=== PATIENT | female | born 1940 | race Caucasian/White ===

== ENCOUNTER 2024-06-27 13:07 | Outpatient (RCR) | payer MEDICARE, SELFPAY ==
[2024-06-27 13:40] VITALS: BP 124/94; PULSE 56; RESP 18; TEMP 36; BMI 32.4
--- NOTE | 2024-06-27 15:07 | PCM.WC.HP ---
History of Present Illness Date of Service: 06/27/24 Chief Complaint: Left anterior leg cat bite History of Wound: 83 year old female presents today for further evaluation of a cat bite to her left anterior leg that occurred on 06/17/24 by her own cat. She went to a urgent care in [place] who placed her on Doxycycline (she is PCN allergic). She went back to the urgent care a few days later because her symptoms (erythema, pain, swelling, and the bite was looking worse) were not improving. At that time, a wound culture was obtained and she was kept on the Doxycycline. She has been placing Bactroban ointment to the wound. She states that the erythema has started to resolve over the past several days. The wound culture results from the urgent care were faxed to us and they showed Abundant Pasteurella multocida (+4), Rare Mixed Skin Microorganisms (+1), Abundant Mixed Anaerobic Bacteria (+4). She is denying fever, chills, nausea, vomiting. She comes in today for further evaluation and treatment. Progress of Wound: Left anterior leg wound that has depth that tracts medially at 8:00. There is some mild erythema surrounding the wound. It is very tender to palpation. [facility] Medical History (Updated 06/27/24 @ 15:41 by Christina Walsh NP, NAME PLATE STAMPING MACHINE OPERATOR-C) Osteoporosis Chronic right hip pain Hyperlipidemia GERD (gastroesophageal reflux disease) HTN (hypertension), benign Home Medications ?Medication ?Instructions ?Recorded ?Last Taken ?Type atorvastatin 20 mg tablet 20 mg PO DAILY 06/27/24 Unknown History cefpodoxime 200 mg tablet 400 mg (2 x 200 mg) PO BID 10 days 06/27/24 Unknown Rx #40 tabs doxycycline monohydrate 100 mg 100 mg PO BID 06/27/24 Unknown History tablet hydrocodone-acetaminophen 5-325mg 1 tab PO Q6H PRN PRN severe pain 06/27/24 Unknown History 5mg-325mg lisinopril 30 mg tablet 30 mg PO DAILY 06/27/24 Unknown History metronidazole 500 mg tablet 500 mg PO TID 10 days #30 tabs 06/27/24 Unknown Rx mupirocin 2 % topical ointment 1 applic topical TID 06/27/24 Unknown History Allergy/AdvReac Type Severity Reaction Status Date / Time Penicillins Allergy Mild Hives Verified 06/27/24 13:39 Surgical History (Updated 06/27/24 @ 15:41 by Christina Walsh NAME PLATE STAMPING MACHINE OPERATOR, NAME PLATE STAMPING MACHINE OPERATOR-C) History of tonsillectomy H/O wrist surgery H/O: hysterectomy Knee joint replacement status Social History (Updated 06/27/24 @ 15:27 by Christina Walsh NAME PLATE STAMPING MACHINE OPERATOR, NAME PLATE STAMPING MACHINE OPERATOR-C) number of children: 3 current occupational status: retired pets and animals: Yes pets and animals: cat(s) Smoking Status: Never smoker alcohol intake: never substance use type: does not use ROS Constitutional Constitutional: Denies body ache(s), chills or fever(s) Eyes Eyes: Reports requires corrective lenses ENT HEENT: Reports none Cardiovascular Cardiovascular: Denies chest pain Respiratory/Chest Respiratory/Chest: Denies cough or dyspnea Gastrointestinal Gastrointestinal: Reports nausea and vomiting Genitourinary Genitourinary: Reports none Musculoskeletal Musculoskeletal: Reports as per HPI Integumentary Integumentary: Reports wounds Neurologic Neurologic: Reports none Psychiatric Psychiatric: Reports none Endocrine Endocrinology: Reports none Hematologic/Lymphatic Hematologic/Lymphatic: Reports none Allergic/Immunologic Allergic/Immunologic: Reports as per HPI Vital Signs Vital Signs Vital Signs: 06/27/24 13:40 Temperature 96.8 F L Temperature Source Temporal Pulse Rate 56 L Respiratory Rate 18 Blood Pressure 124/94 H Blood Pressure Mean 104 Blood Pressure Source Monitor Blood Pressure Position Semi-Fowlers Blood Pressure Location Left Arm Oxygen Delivery Method Room Air Weight Weight: 195 lb Body Mass Index (BMI) 32.4 Physical Exam Const alert, oriented x3 and no apparent distress General Appearance: cooperative HEENT normocephalic Head and Scalp: atraumatic Eyes General Eye: normal appearance of both eyes Neck full ROM Lymph Lymphatic: Negative for lymphedema Resp normal respiratory effort and normal air movement Effort and Inspection: able to speak in complete sentences Cardio regular rate and regular rhythm Peripheral Pulses: dorsalis pedis pulses present left 2+ GI non-distended Back/Spine normal ROM Extremity full ROM and normal capillary refill Skin Wound Narrative: Left anterior leg wound that tunnels at 8 o'clock. Erythema surrounding the wound. Neuro oriented x3 and moves all extremities Psych mental status grossly normal, thought process normal, cooperative and affect normal Debridement Note Debridement Note Wound debrided: anterior leg wound Laterality: Left Type of Debridement: Excisional debridement Anesthesia Used: 5% Lidocaine Gel and Cetacaine Depth: Down to and including healthy tissue and in the subcutaneous layer Percentage of wound debrided: 100 Instrument Used: 3mm curette Tissue Removed: Non viable tissue and slough Severity: Fat Layer Exposed Amount of bleeding with debridement: Mild Bleeding Controlled with: Compression and gauze Patient tolerated procedure: Patient tolerated procedure well Post-Debridement Measurements and Additional Note: Post-Debridement Measurements/Treatment - Nurse 1 - General Ulcer Assessment Start: 06/27/24 13:35 Freq: Status: Active Protocol: KASEY Activity Type Activity Date Activity User E-sign Co-sign Detail Recorded Client Recorded Date Recorded By Document 06/27/24 13:40 KW [id number] 06/27/24 14:04 KW Edit Result 06/27/24 13:40 KW (1) [id number] 06/27/24 14:09 KW (1) Left - Posterior Tibial Doppler => Monophasic - Dorsalis Pedis Doppler => Multiphasic - Extremity Color => Hyperpigmented - Hair Growth on Legs => No - Hair Growth on Toes => No - Temperature of Extremity => Cool - Capillary Refill => Less than 3 => Seconds - Thick => No - Discolored => No - Deformed => No - Improper Length & Hygeine => No 06/27/24 13:40 - Today's Visit Information Type of service Initial Visit Arrival Mode Ambulatory Accompanied by SISTER Patient Identification Verified (Name & Yes ) Height and Weight Height 5 ft 5 in Weight 195 lb Weight in Pounds 195.0 lbs Weight Measurement Method Estimated by Patient Body Mass Index (BMI) 32.4 BMI Classification Obese BSA - [place] 1.96 Vital Signs Temperature (97.8 F-99.1 F) 96.8 F L Temperature Source Temporal Pulse Rate (60-100) 56 L Pulse Location Monitor Respiratory Rate (12-18) 18 Respiratory rate source Observation Oxygen Delivery Method Room Air Blood Pressure (90/60-120/80) 124/94 H Blood Pressure Mean 104 Source Monitor Position Semi-Fowlers Blood Pressure Location Left Arm History Since Last Visit- (Skip if this is Patient's initial visit) Left Footwear Regular Shoe Right Footwear Regular Shoe Pain Scale: 0-10 Numeric Is Patient Pain Free? Yes LLE -Description Sharp -Intensity 10 -Alleviating Factors/Interventions Medication Lower Extremity Assessment/ Foot Assessment/ Toe Nail Assessment Left -Posterior Tibial Doppler Monophasic -Dorsalis Pedis Doppler Multiphasic -Extremity Color Hyperpigmented -Hair Growth on Legs No -Hair Growth on Toes No -Temperature of Extremity Cool -Capillary Refill Less than 3 Seconds -Thick No -Discolored No -Deformed No -Improper Length & Hygeine No Communication Assessment Preferred language Turkish Rn Case Manager Hospice Required No Able to Read Yes Able to Write Yes Communication Tools None Caregiver Communication Skills No Impairment Impairment Right Hearing Abillity Normal Left Hearing Abillity Normal Visual Assistive Devices Glasses Culture/Evangelical/Ball Fringe Machine Operator Cultural/Evangelical Needs that may affect No Treatment Plan Would you allow our hospital photostatic copy maker to No meet you for the purpose of spiritual/ emotional support? Ball Fringe Machine Operator to contact place of advent No WC - Nurse 1 - General Ulcer Measurement Start: 06/27/24 13:35 Freq: Status: Active Protocol: Activity Type Activity Date Activity User E-sign Co-sign Detail Recorded Client Recorded Date Recorded By Document 06/27/24 13:40 [id number] 06/27/24 14:04 KW 06/27/24 13:40 Wound Center Nurse 1 #1 LT CARDONA -Current Size (cm) - Length 0.2 -Current Size (cm) - Width 0.3 -Current Size (cm) - Depth 0.8 -Total Square Cm 0.06 -Date of Last Picture (Recall this 06/27/24 field) -Exudate Amt Small -Exudate Type Serosanguineous -Wound Margin Distinct, Outline Attached -Granulation Amt Large (67-100%) -Granulation Quality Red -Necrosis Amt Small (1-33%) -Necrotic Tissue Type Eschar -Texture (Mahi-wound Skin Appearance) Assessed -Moisture (Mahi-wound Skin Appearance) Assessed -Color (Mahi-wound Skin Appearance) Assessed, Erythema -Temperature (Mahi-wound Skin No Abnormality Appearance) (Pt Warm) -Tenderness on Palpation (Mahi-wound No Skin Appearance) -Ulcer Cleansing Rinsed/ Irrigated with Saline -Foul Odor after Cleansing No -Anesthetic Used 4% Lidocaine Solution Right Calf (cm) 37.5 Right Ankle (cm) 20.3 Left Calf (cm) 37.5 Left Ankle (cm) 22 WC - Nurse 2 - General Ulcer CM Notes Start: 06/27/24 13:35 Freq: Status: Active Protocol: Activity Type Activity Date Activity User E-sign Co-sign Detail Recorded Client Recorded Date Recorded By Document 06/27/24 14:15 [id number] 06/27/24 14:19 06/27/24 14:15 Wound Center Nurse 2 #1 LT CARDONA -Time 14:16 -Correct Patient Yes -Correct Side, Site, Position Yes -Correct Procedure Yes -Procedure Performed Yes -Type of Procedure Debridement -Clinical Debridement Subcutaneous -Tissue Removed Subcutaneous -Post Debridement (cm) - Length 0.6 -Post Debridement (cm) - Width 0.7 -Post Debridement (cm) - Depth 0.9 -Total Square (Post) (cm) 0.42 -Area of Debridement (cm) - Length 0.6 -Area of Debridement (cm) - Width 0.7 -Total Square (Area) (cm) 0.42 -Tunneling No -Undermining/Tunneling No -Circular Undermining No -Wound/Ulcer Outcome Not Healed -Ulcer Cleansing Rinsed/ Irrigated with Saline -Foul Odor after Cleansing No -Bioengineered Tissue No -Bleeding Controlled with Pressure -Treatment Response Procedure Tolerated Well -Debridement - Subq, 1st 20sq cm Yes Pain Scale: 0-10 Numeric Is Patient Pain Free? Yes - Nurse 3 - General Ulcer D/C NN Start: 06/27/24 13:35 Freq: Status: Active Protocol: Activity Type Activity Date Activity User E-sign Co-sign Detail Recorded Client Recorded Date Recorded By Document 06/27/24 14:36 [id number] 06/27/24 14:42 06/27/24 14:36 Wound Care Center Nurse 3 #1 LT CARDONA -Ulcer Cleansing Not Cleansed -Foul Odor after Cleansing No -Primary Dressing Covered/Secured with Dry Gauze & Roll Gauze, Secured with Tape -Nugauze, Iodoform 1/2in 1 Pain Scale: 0-10 Numeric Is Patient Pain Free? Yes - Visit Discharge Discharge Condition Stable Ambulatory Status Ambulatory Transportation Private Auto Charges/Coding Visit Charges Office Visits / Consults: 61886 OV L3 New 30min (25 modifier) Procedures Integumentary 111xxx-113xx: 29707 Sirisha subq tissue 20 sq cm/< Assessment/Plan Assessment/Plan (1) Non-healing wound of left lower extremity: CODE(S): S81.802A - Unspecified open wound, left lower leg, initial encounter (2) Cat bite of left lower leg: CODE(S): S81.852A - Open bite, left lower leg, initial encounter; W55.01XA - Bitten by cat, initial encounter QUALIFIERS: Encounter type: initial encounter Qualified Code(s): S81.852A - Open bite, left lower leg, initial encounter; W55.01XA - Bitten by cat, initial encounter PLAN: Plan Patient evaluated at the wound healing center. Wound care - To left anterior leg wound, instructed how to pack iodoform gauze into the depth of the wound, top with gauze and secure with tape or may use a mepilex dressing that she has at home. Compression - Single layer tubigrip. Wound culture was obtained 06/23/24 at urgent care in [place]. Results faxed to us which showed Abundant Pasteurella multocida (+4), Rare Mixed Skin Microorganisms (+1), Abundant Mixed Anaerobic Bacteria (+4). She had been on Doxycycline which did help decrease some of the redness, but did not resolve it over the past 10 days. Will start her on Flagyl for the anaerobic cultures and start her on Cefpodoxime for the Pasteurella. She will follow up one week. Instructed to call or come back sooner if develop any concerns.
--- NOTE | 2024-07-04 10:04 | WC ---
PHOTO 06/27/24 LEFT CARDONA
== END 2024-06-28 23:59 | disposition home or self-care (01) ==
LOC: WC 13:07
PROVIDERS: PCP Family Medicine; Visit Provider Nurse Practitioner Family
DX: S81.852A Open bite, left lower leg, initial encounter (principal); I10 Essential (primary) hypertension; E78.5 Hyperlipidemia, unspecified; W55.01XA Bitten by cat, initial encounter; K21.9 Gastro-esophageal reflux disease without esophagitis; Z90.710 Acquired absence of both cervix and uterus
CPT/HCPCS: 11042; 99203; G0463

== ENCOUNTER 2024-07-27 13:45 | Outpatient (RCR) | payer MEDICARE, SELFPAY ==
[2024-06-29 00:31] VITALS: BP 124/94; PULSE 56; RESP 18; TEMP 36; BMI 32.4
[2024-07-06 14:37] VITALS: BP 165/82; PULSE 63; RESP 16; BMI 32.4
--- NOTE | 2024-07-06 17:26 | PN.PCM_ITS ---
History of Present Illness Date of Service: 07/06/24 Chief Complaint: Left anterior leg cat bite History of Wound: 83 year old female presents today for further evaluation of a cat bite to her left anterior leg that occurred on 06/17/24 by her own cat. She went to a urgent care in [place] who placed her on Doxycycline (she is PCN allergic). She went back to the urgent care a few days later because her symptoms (erythema, pain, swelling, and the bite was looking worse) were not improving. At that time, a wound culture was obtained and she was kept on the Doxycycline. She has been placing Bactroban ointment to the wound. She states that the erythema has started to resolve over the past several days. The wound culture results from the urgent care were faxed to us and they showed Abundant Pasteurella multocida (+4), Rare Mixed Skin Microorganisms (+1), Abundant Mixed Anaerobic Bacteria (+4). She is denying fever, chills, nausea, vomiting. She comes in today for further evaluation and treatment. Progress of Wound: Left anterior leg wound from her cat bite is stable in in size. The wound bed is a nice beefy pink. The wound tracts medially at 8:00. The erythema has resolved surrounding the wound. She has completed her antibiotics and states that the wound is much less painful than it previously had been. She denies any issues with wound care. Objective Data Objective Data Vital Signs: Vital Signs Temp Pulse Resp BP O2 Del Method 96.8 F L 63 16 165/82 H Room Air 06/29/24 00:31 07/06/24 14:37 07/06/24 14:37 07/06/24 14:37 07/06/24 14:37 Oxygen Delivery Method Room Air Weight: 195 lb Body Mass Index (BMI) 32.4 Charges/Coding Procedures Integumentary 111xxx-113xx: 09673 Sirisha subq tissue 20 sq cm/< Debridement Note Debridement Note Wound debrided: anterior leg wound Laterality: Left Type of Debridement: Excisional debridement Anesthesia Used: 5% Lidocaine Gel Depth: Down to and including healthy tissue and in the subcutaneous layer Percentage of wound debrided: 100 Instrument Used: 3mm curette Tissue Removed: Non viable tissue and slough Severity: Fat Layer Exposed Amount of bleeding with debridement: Mild Bleeding Controlled with: Compression and gauze Patient tolerated procedure: Patient tolerated procedure well Post-Debridement Measurements and Additional Note: Post-Debridement Measurements/Treatment - Nurse 1 - General Ulcer Assessment Start: 07/06/24 14:35 Freq: Status: Active Protocol: KASEY Activity Type Activity Date Activity User E-sign Co-sign Detail Recorded Client Recorded Date Recorded By Document 07/06/24 14:37 ARLET [id number] 07/06/24 14:44 07/06/24 14:37 - Today's Visit Information Type of service Follow-up Visit (Physician/REIMBURSEMENT SPECIALIST ) Arrival Mode Ambulatory Accompanied by sister Patient Identification Verified (Name & Yes ) Height and Weight Body Mass Index (BMI) 32.4 BMI Classification Obese Vital Signs Pulse Rate (60-100) 63 Pulse Location Monitor Respiratory Rate (12-18) 16 Respiratory rate source Observation Oxygen Delivery Method Room Air Blood Pressure (90/60-120/80) 165/82 H Blood Pressure Mean (mm Hg) 109 Source Monitor Position Semi-Fowlers Blood Pressure Location Right Arm History Since Last Visit- (Skip if this is Patient's initial visit) Have you changed medications since your No last visit? Any new allergies or adverse reactions No Had a fall/change in ADL's that may No increase risk of falls Signs or symptoms of abuse and/or No neglect since last visit Have you been in the hospital since your No last visit? Has dressing in place as prescribed Yes Has compression in place as prescribed N/A Has offloadiing in place as prescribed N/A Experienced any changes in pain level or No management Left Footwear Regular Shoe Right Footwear Regular Shoe Pain Scale: 0-10 Numeric Is Patient Pain Free? No LLE -Description Sharp -Intensity 4 -Alleviating Factors/Interventions Medication, Medicate when due -Comments needles/ shock type pain - Nurse 1 - General Ulcer Measurement Start: 07/06/24 14:35 Freq: Status: Active Protocol: Activity Type Activity Date Activity User E-sign Co-sign Detail Recorded Client Recorded Date Recorded By Document 07/06/24 14:37 ARLET [id number] 07/06/24 14:44 07/06/24 14:37 Wound Center Nurse 1 #1 LT CARDONA -Current Size (cm) - Length 0.3 -Current Size (cm) - Width 0.6 -Current Size (cm) - Depth 0.3 -Total Square Cm 0.18 -Exudate Amt Medium -Exudate Type Serosanguineous -Wound Margin Distinct, Outline Attached -Granulation Amt Large (67-100%) -Granulation Quality [place] -Texture (Mahi-wound Skin Appearance) Assessed -Moisture (Mahi-wound Skin Appearance) Assessed, Weeping -Color (Mahi-wound Skin Appearance) Assessed -Temperature (Mahi-wound Skin No Abnormality Appearance) (Pt Warm) -Tenderness on Palpation (Mahi-wound No Skin Appearance) -Ulcer Cleansing Rinsed/ Irrigated with Saline -Foul Odor after Cleansing No -Anesthetic Used 5% Lidocaine Gel Left Calf (cm) 37 Left Ankle (cm) 21.3 WC - Nurse 2 - General Ulcer CM Notes Start: 07/06/24 14:35 Freq: Status: Active Protocol: Activity Type Activity Date Activity User E-sign Co-sign Detail Recorded Client Recorded Date Recorded By Document 07/06/24 15:36 [id number] 07/06/24 15:41 07/06/24 15:36 Wound Center Nurse 2 #1 LT CARDONA -Time 15:37 -Correct Patient Yes -Correct Side, Site, Position Yes -Correct Procedure Yes -Procedure Performed Yes -Type of Procedure Debridement -Clinical Debridement Subcutaneous -Tissue Removed Subcutaneous -Post Debridement (cm) - Length 0.8 -Post Debridement (cm) - Width 0.8 -Post Debridement (cm) - Depth 0.9 -Total Square (Post) (cm) 0.64 -Area of Debridement (cm) - Length 0.8 -Area of Debridement (cm) - Width 0.8 -Total Square (Area) (cm) 0.64 -Tunneling No -Undermining/Tunneling No -Circular Undermining No -Wound/Ulcer Outcome Not Healed -Ulcer Cleansing Rinsed/ Irrigated with Saline -Foul Odor after Cleansing No -Bioengineered Tissue No -Bleeding Controlled with Pressure -Treatment Response Procedure Tolerated Well -Debridement - Subq, 1st 20sq cm Yes Pain Scale: 0-10 Numeric Is Patient Pain Free? Yes - Nurse 3 - General Ulcer D/C NN Start: 07/06/24 14:35 Freq: Status: Active Protocol: Activity Type Activity Date Activity User E-sign Co-sign Detail Recorded Client Recorded Date Recorded By Document 07/06/24 15:50 [id number] 07/06/24 15:51 KW 07/06/24 15:50 Wound Care Center Nurse 3 #1 LT CARDONA -Primary Dressing Applied Nugauze, Iodoform 1/4in -Primary Dressing Covered/Secured with Dry Gauze & Roll Gauze -Nugauze, Iodoform 1/4in 1 Left -Tubular Bandage Double Layer -Size of Tubigrip Used Size E -Size E ($) 2 Pain Scale: 0-10 Numeric Is Patient Pain Free? Yes WC - Visit Discharge Discharge Condition Stable Ambulatory Status Ambulatory Transportation Private Auto Medication Reconcilliation completed & No provided to patient/care provider Clinical Summary of Care Provided Yes Assessment/Plan Assessment/Plan (1) Non-healing wound of left lower extremity: CODE(S): S81.802A - Unspecified open wound, left lower leg, initial encounter (2) Cat bite of left lower leg: CODE(S): S81.852A - Open bite, left lower leg, initial encounter; W55.01XA - Bitten by cat, initial encounter QUALIFIERS: Encounter type: initial encounter Qualified Code(s): S81.852A - Open bite, left lower leg, initial encounter; W55.01XA - Bitten by cat, initial encounter PLAN: Plan Patient evaluated at the wound healing center. Wound care - To left anterior leg wound, pack iodoform gauze into the depth of the wound, top with gauze and secure with tape or cling gauze wrap or may use a mepilex dressing that she has at home. Compression - Double layer tubigrip. Wound culture was obtained 06/23/24 at urgent care in [place]. Results faxed to us which showed Abundant Pasteurella multocida (+4), Rare Mixed Skin Microorganisms (+1), Abundant Mixed Anaerobic Bacteria (+4). She had been on Doxycycline which did help decrease some of the redness, but did not resolve it over the past 10 days. Completed the Flagyl for the anaerobic cultures and start her on Cefpodoxime for the Pasteurella. She will follow up one week. Instructed to call or come back sooner if develop any concerns.
[2024-07-13 13:06] VITALS: BP 168/66; PULSE 64; RESP 16; TEMP 36; BMI 32.4
--- NOTE | 2024-07-13 14:27 | PCM.WC.PN ---
History of Present Illness Date of Service: 07/13/24 Chief Complaint: Left anterior leg cat bite History of Wound: 84 year old female presents today for further evaluation of a cat bite to her left anterior leg that occurred on 06/17/24 by her own cat. She went to a urgent care in [place] who placed her on Doxycycline (she is PCN allergic). She went back to the urgent care a few days later because her symptoms (erythema, pain, swelling, and the bite was looking worse) were not improving. At that time, a wound culture was obtained and she was kept on the Doxycycline. She has been placing Bactroban ointment to the wound. She states that the erythema has started to resolve over the past several days. The wound culture results from the urgent care were faxed to us and they showed Abundant Pasteurella multocida (+4), Rare Mixed Skin Microorganisms (+1), Abundant Mixed Anaerobic Bacteria (+4). She is denying fever, chills, nausea, vomiting. She comes in today for further evaluation and treatment. Progress of Wound: Left anterior leg wound from her cat bite is slightly smaller in size. The wound bed is a nice beefy pink. The erythema has resolved surrounding the wound. Objective Data Objective Data Vital Signs: Vital Signs Temp Pulse Resp BP O2 Del Method 96.8 F L 64 16 168/66 H Room Air 07/13/24 13:06 07/13/24 13:06 07/13/24 13:06 07/13/24 13:06 07/13/24 13:06 Oxygen Delivery Method Room Air Weight: 195 lb Body Mass Index (BMI) 32.4 Charges/Coding Procedures Integumentary 111xxx-113xx: 11945 Sirisha subq tissue 20 sq cm/< Debridement Note Debridement Note Wound debrided: anterior leg wound Laterality: Left Type of Debridement: Excisional debridement Anesthesia Used: 5% Lidocaine Gel Depth: Down to and including healthy tissue and in the subcutaneous layer Percentage of wound debrided: 100 Instrument Used: 3mm curette Tissue Removed: Non viable tissue and slough Severity: Fat Layer Exposed Amount of bleeding with debridement: Mild Bleeding Controlled with: Compression and gauze Patient tolerated procedure: Patient tolerated procedure well Post-Debridement Measurements and Additional Note: Post-Debridement Measurements/Treatment WC - Nurse 1 - General Ulcer Assessment Start: 07/06/24 14:35 Freq: Status: Active Protocol: KASEY Activity Type Activity Date Activity User E-sign Co-sign Detail Recorded Client Recorded Date Recorded By Document 07/06/24 14:37 [id number] 07/06/24 14:44 KW Document 07/13/24 13:06 [facility] [id number] 07/13/24 13:19 BM 07/06/24 07/13/24 14:37 13:06 - Today's Visit Information Type of service Follow-up Visit Follow-up Visit (Physician/VIDEO PRODUCTION INTERN (Physician/VIDEO PRODUCTION INTERN ) ) Arrival Mode Ambulatory Ambulatory Accompanied by sister sister Patient Identification Verified (Name & Yes Yes ) Height and Weight Body Mass Index (BMI) 32.4 32.4 BMI Classification Obese Obese Vital Signs Temperature (97.8 F-99.1 F) 96.8 F L Temperature Source Temporal Pulse Rate (60-100) 63 64 Pulse Location Monitor Monitor Respiratory Rate (12-18) 16 16 Respiratory rate source Observation Observation Oxygen Delivery Method Room Air Room Air Blood Pressure (90/60-120/80) 165/82 H 168/66 H Blood Pressure Mean (mm Hg) 109 100 Source Monitor Monitor Position Semi-Fowlers Sitting Blood Pressure Location Right Arm Left Arm History Since Last Visit- (Skip if this is Patient's initial visit) Have you changed medications since your No No last visit? Any new allergies or adverse reactions No No Had a fall/change in ADL's that may No No increase risk of falls Signs or symptoms of abuse and/or No No neglect since last visit Have you been in the hospital since your No No last visit? Has dressing in place as prescribed Yes Yes Has compression in place as prescribed N/A Yes Has offloadiing in place as prescribed N/A N/A Experienced any changes in pain level or No No management Left Footwear Regular Shoe Regular Shoe Right Footwear Regular Shoe Regular Shoe Pain Scale: 0-10 Numeric Is Patient Pain Free? No Yes LLE -Description Sharp -Intensity 4 -Alleviating Factors/Interventions Medication, Medicate when due -Comments needles/ shock type pain - Nurse 1 - General Ulcer Measurement Start: 07/06/24 14:35 Freq: Status: Active Protocol: Activity Type Activity Date Activity User E-sign Co-sign Detail Recorded Client Recorded Date Recorded By Document 07/06/24 14:37 [id number] 07/06/24 14:44 Document 07/13/24 13:06 [facility] [id number] 07/13/24 13:19 [facility] 07/06/24 07/13/24 14:37 13:06 Wound Center Nurse 1 #1 LT CARDONA -Combined with other wound No -Current Size (cm) - Length 0.3 0.7 -Current Size (cm) - Width 0.6 0.5 -Current Size (cm) - Depth 0.3 1 -Total Square Cm 0.18 0.35 -Date of Last Picture (Recall this 07/13/24 field) -Photo Taken Yes -Epithelialization Small 1-33% -Tunneling No -Undermining/Tunneling No -Circular Undermining No -Exudate Amt Medium Medium -Exudate Type Serosanguineous Serosanguineous -Wound Margin Distinct, Distinct, Outline Outline Attached Attached -Granulation Amt Large (67-100%) Large (67-100%) -Granulation Quality [place] Red -Slough/Fibrin No -Necrosis Amt None Present (0 %) -Texture (Mahi-wound Skin Appearance) Assessed Assessed -Moisture (Mahi-wound Skin Appearance) Assessed, Assessed,Dry/ Weeping Scaly -Color (Mahi-wound Skin Appearance) Assessed Assessed -Temperature (Mahi-wound Skin No Abnormality No Abnormality Appearance) (Pt Warm) (Pt Warm) -Tenderness on Palpation (Mahi-wound No No Skin Appearance) -Ulcer Cleansing Rinsed/ Rinsed/ Irrigated with Irrigated with Saline Saline -Foul Odor after Cleansing No Yes, Due to Product Use -Anesthetic Used 5% Lidocaine 5% Lidocaine Gel Gel Lower Limb Edema Present Yes Left Calf (cm) 37 37.6 Left Ankle (cm) 21.3 20.8 WC - Nurse 2 - General Ulcer CM Notes Start: 07/06/24 14:35 Freq: Status: Active Protocol: Activity Type Activity Date Activity User E-sign Co-sign Detail Recorded Client Recorded Date Recorded By Document 07/06/24 15:36 [id number] 07/06/24 15:41 Document 07/13/24 13:49 [id number] 07/13/24 13:50 GM 07/06/24 07/13/24 15:36 13:49 Wound Center Nurse 2 #1 LT CARDONA -Time 15:37 13:49 -Correct Patient Yes Yes -Correct Side, Site, Position Yes Yes -Correct Procedure Yes Yes -Procedure Performed Yes Yes -Type of Procedure Debridement Debridement -Clinical Debridement Subcutaneous Subcutaneous -Tissue Removed Subcutaneous Subcutaneous -Post Debridement (cm) - Length 0.8 0.6 -Post Debridement (cm) - Width 0.8 0.6 -Post Debridement (cm) - Depth 0.9 0.7 -Total Square (Post) (cm) 0.64 0.36 -Area of Debridement (cm) - Length 0.8 0.6 -Area of Debridement (cm) - Width 0.8 0.6 -Total Square (Area) (cm) 0.64 0.36 -Tunneling No No -Undermining/Tunneling No No -Circular Undermining No No -Wound/Ulcer Outcome Not Healed Not Healed -Ulcer Cleansing Rinsed/ Rinsed/ Irrigated with Irrigated with Saline Saline -Foul Odor after Cleansing No No -Bioengineered Tissue No No -Bleeding Controlled with Pressure Pressure -Treatment Response Procedure Procedure Tolerated Well Tolerated Well -Debridement - Subq, 1st 20sq cm Yes Yes Pain Scale: 0-10 Numeric Is Patient Pain Free? Yes Yes - Nurse 3 - General Ulcer D/C NN Start: 07/06/24 14:35 Freq: Status: Active Protocol: Activity Type Activity Date Activity User E-sign Co-sign Detail Recorded Client Recorded Date Recorded By Document 07/06/24 15:50 [id number] 07/06/24 15:51 Document 07/13/24 14:05 [facility] [id number] 07/13/24 14:07 [facility] 07/06/24 07/13/24 15:50 14:05 Wound Care Center Nurse 3 #1 LT CARDONA -Ulcer Cleansing Rinsed/ Irrigated with Saline -Foul Odor after Cleansing No -Primary Dressing Applied Nugauze, Iodoform 1/4in -Primary Dressing Applied Nugauze, Iodoform 1/2in, Silicone Border Foam 4x4 -Primary Dressing Covered/Secured with Dry Gauze & Roll Gauze -Nugauze, Iodoform 1/4in 1 -Nugauze, Iodoform 1/2in 1 -Silicone Border Foam 4x4 1 Left -Tubular Bandage Double Layer Double Layer -Size of Tubigrip Used Size E Size E -Size E ($) 2 2 Treatment Response Procedure Tolerated Well Pain Scale: 0-10 Numeric Is Patient Pain Free? Yes Yes Teaching: Wound Center Dressing Your Wound -Person Taught Patient,Family -Teaching Method Discussion -Response to teaching Verbalize Understanding Wound dressing -Person Taught Patient,Family -Teaching Method Discussion -Response to teaching Verbalize Understanding WC - Visit Discharge Discharge Condition Stable Stable Ambulatory Status Ambulatory Ambulatory Transportation Private Auto Private Auto Accompanied by sister accompanied Medication Reconcilliation completed & No provided to patient/care provider Clinical Summary of Care Provided Yes Assessment/Plan Assessment/Plan (1) Non-healing wound of left lower extremity: CODE(S): S81.802A - Unspecified open wound, left lower leg, initial encounter (2) Cat bite of left lower leg: CODE(S): S81.852A - Open bite, left lower leg, initial encounter; W55.01XA - Bitten by cat, initial encounter QUALIFIERS: Encounter type: initial encounter Qualified Code(s): S81.852A - Open bite, left lower leg, initial encounter; W55.01XA - Bitten by cat, initial encounter PLAN: Plan Patient evaluated at the wound healing center. Wound care - To left anterior leg wound, pack iodoform gauze into the depth of the wound, top with gauze or [place] SAP/silicone bordered dressing daily. Wash area with soap and water and pat dry before dressing changes. Compression - Double layer tubigrip to the left leg. Wound culture was obtained 06/23/24 at urgent care in [place]. Results faxed to us which showed Abundant Pasteurella multocida (+4), Rare Mixed Skin Microorganisms (+1), Abundant Mixed Anaerobic Bacteria (+4). She had been on Doxycycline which did help decrease some of the redness, but did not resolve it over the past 10 days. Completed the Flagyl for the anaerobic cultures and start her on Cefpodoxime for the Pasteurella. She will follow up one week. Instructed to call or come back sooner if develop any concerns.
--- NOTE | 2024-07-14 08:54 | WC ---
PHOTO 07/13/24 LEFT CARDONA
[2024-07-20 13:03] VITALS: BP 171/66; PULSE 58; RESP 16; TEMP 35.9; BMI 32.4
--- NOTE | 2024-07-20 14:02 | PCM.WC.PN ---
History of Present Illness Date of Service: 07/20/24 Chief Complaint: Left anterior leg cat bite History of Wound: 84 year old female presents today for further evaluation of a cat bite to her left anterior leg that occurred on 06/17/24 by her own cat. She went to a urgent care in [place] who placed her on Doxycycline (she is PCN allergic). She went back to the urgent care a few days later because her symptoms (erythema, pain, swelling, and the bite was looking worse) were not improving. At that time, a wound culture was obtained and she was kept on the Doxycycline. She has been placing Bactroban ointment to the wound. She states that the erythema has started to resolve over the past several days. The wound culture results from the urgent care were faxed to us and they showed Abundant Pasteurella multocida (+4), Rare Mixed Skin Microorganisms (+1), Abundant Mixed Anaerobic Bacteria (+4). She is denying fever, chills, nausea, vomiting. She comes in today for further evaluation and treatment. Progress of Wound: Left anterior leg wound from her cat bite is slightly smaller in depth. The wound bed is a nice beefy pink. The alicja wound is clear. She denies any issues with packing the iodoform gauze. Objective Data Objective Data Vital Signs: Vital Signs Temp Pulse Resp BP O2 Del Method 96.7 F L 58 L 16 171/66 H Room Air 07/20/24 13:03 07/20/24 13:03 07/20/24 13:03 07/20/24 13:03 07/20/24 13:03 Oxygen Delivery Method Room Air Weight: 195 lb Body Mass Index (BMI) 32.4 Charges/Coding Procedures Integumentary 111xxx-113xx: 90264 Sirisha subq tissue 20 sq cm/< Debridement Note Debridement Note Wound debrided: anterior leg wound Laterality: Left Type of Debridement: Excisional debridement Anesthesia Used: 5% Lidocaine Gel Depth: Down to and including healthy tissue and in the subcutaneous layer Percentage of wound debrided: 100 Instrument Used: 3mm curette Tissue Removed: Non viable tissue and slough Severity: Fat Layer Exposed Amount of bleeding with debridement: Mild Bleeding Controlled with: Compression and gauze Patient tolerated procedure: Patient tolerated procedure well Post-Debridement Measurements and Additional Note: Post-Debridement Measurements/Treatment WC - Nurse 1 - General Ulcer Assessment Start: 07/06/24 14:35 Freq: Status: Active Protocol: WC.LOWEXT Activity Type Activity Date Activity User E-sign Co-sign Detail Recorded Client Recorded Date Recorded By Document 07/06/24 14:37 KW [id number] 07/06/24 14:44 KW Document 07/13/24 13:06 BMF [id number] 07/13/24 13:19 BMF Document 07/20/24 13:03 BMF [id number] 07/20/24 13:11 BMF 07/06/24 07/13/24 07/20/24 14:37 13:06 13:03 - Today's Visit Information Type of service Follow-up Visit Follow-up Visit Follow-up Visit (Physician/MOUNTING MACHINE OPERATOR (Physician/MOUNTING MACHINE OPERATOR (Physician/MOUNTING MACHINE OPERATOR ) ) ) Arrival Mode Ambulatory Ambulatory Ambulatory Transfer Assistance None Accompanied by sister sister sister Patient Identification Verified (Name & Yes Yes Yes ) Patient Requires Transmission-Based No Precautions Height and Weight Body Mass Index (BMI) 32.4 32.4 32.4 BMI Classification Obese Obese Obese Vital Signs Temperature (97.8 F-99.1 F) 96.8 F L 96.7 F L Temperature Source Temporal Temporal Pulse Rate (60-100) 63 64 58 L Pulse Location Monitor Monitor Monitor Respiratory Rate (12-18) 16 16 16 Respiratory rate source Observation Observation Observation Oxygen Delivery Method Room Air Room Air Room Air Blood Pressure (90/60-120/80) 165/82 H 168/66 H 171/66 H Blood Pressure Mean (mm Hg) 109 100 101 Source Monitor Monitor Monitor Position Semi-Fowlers Sitting Sitting Blood Pressure Location Right Arm Left Arm Left Arm History Since Last Visit- (Skip if this is Patient's initial visit) Have you changed medications since your No No No last visit? Any new allergies or adverse reactions No No No Had a fall/change in ADL's that may No No No increase risk of falls Signs or symptoms of abuse and/or No No No neglect since last visit Have you been in the hospital since your No No No last visit? Has dressing in place as prescribed Yes Yes Yes Has compression in place as prescribed N/A Yes Yes Has offloadiing in place as prescribed N/A N/A N/A Experienced any changes in pain level or No No No management Left Footwear Regular Shoe Regular Shoe Regular Shoe Right Footwear Regular Shoe Regular Shoe Regular Shoe Pain Scale: 0-10 Numeric Is Patient Pain Free? No Yes Yes LLE -Description Sharp -Intensity 4 -Alleviating Factors/Interventions Medication, Medicate when due -Comments needles/ shock type pain WC - Nurse 1 - General Ulcer Measurement Start: 07/06/24 14:35 Freq: Status: Active Protocol: Activity Type Activity Date Activity User E-sign Co-sign Detail Recorded Client Recorded Date Recorded By Document 07/06/24 14:37 KW [id number] 07/06/24 14:44 KW Document 07/13/24 13:06 BM [id number] 07/13/24 13:19 BM Document 07/20/24 13:03 [facility] [id number] 07/20/24 13:11 BMF 07/06/24 07/13/24 07/20/24 14:37 13:06 13:03 Wound Center Nurse 1 #1 LT CARDONA -Combined with other wound No No -Current Size (cm) - Length 0.3 0.7 0.3 -Current Size (cm) - Width 0.6 0.5 0.3 -Current Size (cm) - Depth 0.3 1 0.7 -Total Square Cm 0.18 0.35 0.09 -Date of Last Picture (Recall this 07/13/24 07/20/24 field) -Photo Taken Yes Yes -Epithelialization Small 1-33% Small 1-33% -Tunneling No No -Undermining/Tunneling No No -Circular Undermining No No -Exudate Amt Medium Medium Medium -Exudate Type Serosanguineous Serosanguineous Sanguineous -Wound Margin Distinct, Distinct, Distinct, Outline Outline Outline Attached Attached Attached -Granulation Amt Large (67-100%) Large (67-100%) Large (67-100%) -Granulation Quality [place] Red Red -Slough/Fibrin No No -Necrosis Amt None Present (0 None Present (0 %) %) -Texture (Alicja-wound Skin Appearance) Assessed Assessed Assessed -Moisture (Alicja-wound Skin Appearance) Assessed, Assessed,Dry/ Assessed,Dry/ Weeping Scaly Scaly -Color (Alicja-wound Skin Appearance) Assessed Assessed Assessed -Temperature (Alicja-wound Skin No Abnormality No Abnormality No Abnormality Appearance) (Pt Warm) (Pt Warm) (Pt Warm) -Tenderness on Palpation (Alicja-wound No No No Skin Appearance) -Ulcer Cleansing Rinsed/ Rinsed/ Rinsed/ Irrigated with Irrigated with Irrigated with Saline Saline Saline -Foul Odor after Cleansing No Yes, Due to No Product Use -Anesthetic Used 5% Lidocaine 5% Lidocaine 5% Lidocaine Gel Gel Gel Lower Limb Edema Present Yes Left Calf (cm) 37 37.6 37.6 Left Ankle (cm) 21.3 20.8 20.8 WC - Nurse 2 - General Ulcer CM Notes Start: 07/06/24 14:35 Freq: Status: Active Protocol: Activity Type Activity Date Activity User E-sign Co-sign Detail Recorded Client Recorded Date Recorded By Document 07/06/24 15:36 [id number] 07/06/24 15:41 Document 07/13/24 13:49 [id number] 07/13/24 13:50 Document 07/20/24 13:44 [id number] 07/20/24 13:45 07/06/24 07/13/24 07/20/24 15:36 13:49 13:44 Wound Center Nurse 2 #1 LT CARDONA -Time 15:37 13:49 13:44 -Correct Patient Yes Yes Yes -Correct Side, Site, Position Yes Yes Yes -Correct Procedure Yes Yes Yes -Procedure Performed Yes Yes Yes -Type of Procedure Debridement Debridement Debridement -Clinical Debridement Subcutaneous Subcutaneous Subcutaneous -Tissue Removed Subcutaneous Subcutaneous Subcutaneous -Post Debridement (cm) - Length 0.8 0.6 0.5 -Post Debridement (cm) - Width 0.8 0.6 0.5 -Post Debridement (cm) - Depth 0.9 0.7 0.1 -Total Square (Post) (cm) 0.64 0.36 0.25 -Area of Debridement (cm) - Length 0.8 0.6 0.5 -Area of Debridement (cm) - Width 0.8 0.6 0.5 -Total Square (Area) (cm) 0.64 0.36 0.25 -Tunneling No No No -Undermining/Tunneling No No No -Circular Undermining No No No -Wound/Ulcer Outcome Not Healed Not Healed Not Healed -Ulcer Cleansing Rinsed/ Rinsed/ Rinsed/ Irrigated with Irrigated with Irrigated with Saline Saline Saline -Foul Odor after Cleansing No No No -Bioengineered Tissue No No No -Bleeding Controlled with Pressure Pressure Pressure -Treatment Response Procedure Procedure Procedure Tolerated Well Tolerated Well Tolerated Well -Debridement - Subq, 1st 20sq cm Yes Yes Yes Pain Scale: 0-10 Numeric Is Patient Pain Free? Yes Yes Yes - Nurse 3 - General Ulcer D/C NN Start: 07/06/24 14:35 Freq: Status: Active Protocol: Activity Type Activity Date Activity User E-sign Co-sign Detail Recorded Client Recorded Date Recorded By Document 07/06/24 15:50 KW [id number] 07/06/24 15:51 KW Document 07/13/24 14:05 [facility] [id number] 07/13/24 14:07 BM 07/06/24 07/13/24 15:50 14:05 Wound Care Center Nurse 3 #1 LT CARDONA -Ulcer Cleansing Rinsed/ Irrigated with Saline -Foul Odor after Cleansing No -Primary Dressing Applied Nugauze, Iodoform 1/4in -Primary Dressing Applied Nugauze, Iodoform 1/2in, Silicone Border Foam 4x4 -Primary Dressing Covered/Secured with Dry Gauze & Roll Gauze -Nugauze, Iodoform 1/4in 1 -Nugauze, Iodoform 1/2in 1 -Silicone Border Foam 4x4 1 Left -Tubular Bandage Double Layer Double Layer -Size of Tubigrip Used Size E Size E -Size E ($) 2 2 Treatment Response Procedure Tolerated Well Pain Scale: 0-10 Numeric Is Patient Pain Free? Yes Yes Teaching: Wound Center Dressing Your Wound -Person Taught Patient,Family -Teaching Method Discussion -Response to teaching Verbalize Understanding Wound dressing -Person Taught Patient,Family -Teaching Method Discussion -Response to teaching Verbalize Understanding WC - Visit Discharge Discharge Condition Stable Stable Ambulatory Status Ambulatory Ambulatory Transportation Private Auto Private Auto Accompanied by sister accompanied Medication Reconcilliation completed & No provided to patient/care provider Clinical Summary of Care Provided Yes Assessment/Plan Assessment/Plan (1) Non-healing wound of left lower extremity: CODE(S): S81.802A - Unspecified open wound, left lower leg, initial encounter (2) Cat bite of left lower leg: CODE(S): S81.852A - Open bite, left lower leg, initial encounter; W55.01XA - Bitten by cat, initial encounter QUALIFIERS: Encounter type: initial encounter Qualified Code(s): S81.852A - Open bite, left lower leg, initial encounter; W55.01XA - Bitten by cat, initial encounter PLAN: Plan Patient evaluated at the wound healing center. Wound care - To left anterior leg wound, pack iodoform gauze into the depth of the wound, top with gauze or [place] SAP/silicone bordered dressing daily. Wash area with soap and water and pat dry before dressing changes. Compression - Double layer tubigrip to the left leg. Wound culture was obtained 06/23/24 at urgent care in [place]. Results faxed to us which showed Abundant Pasteurella multocida (+4), Rare Mixed Skin Microorganisms (+1), Abundant Mixed Anaerobic Bacteria (+4). She had been on Doxycycline and then switched to Flagyl for the anaerobic cultures and start her on Cefpodoxime for the Pasteurella. She will follow up one week. Instructed to call or come back sooner if develop any concerns.
--- NOTE | 2024-07-21 09:54 | WC ---
PHOTO 07/20/24 LEFT CARDONA
[2024-07-27 13:53] VITALS: BP 193/88; PULSE 74; RESP 18; TEMP 35.7; BMI 32.4
--- NOTE | 2024-07-27 17:09 | PN.PCM_ITS ---
History of Present Illness Date of Service: 07/27/24 Chief Complaint: Left anterior leg cat bite History of Wound: 84 year old female presents today for further evaluation of a cat bite to her left anterior leg that occurred on 06/17/24 by her own cat. She went to a urgent care in [place] who placed her on Doxycycline (she is PCN allergic). She went back to the urgent care a few days later because her symptoms (erythema, pain, swelling, and the bite was looking worse) were not improving. At that time, a wound culture was obtained and she was kept on the Doxycycline. She has been placing Bactroban ointment to the wound. She states that the erythema has started to resolve over the past several days. The wound culture results from the urgent care were faxed to us and they showed Abundant Pasteurella multocida (+4), Rare Mixed Skin Microorganisms (+1), Abundant Mixed Anaerobic Bacteria (+4). She is denying fever, chills, nausea, vomiting. She comes in today for further evaluation and treatment. Progress of Wound: Left anterior leg wound from her cat bite is stable. The alicja wound is clear. It is difficult to see the ulcer because the opening is getting smaller. She denies any issues with packing the iodoform gauze. Objective Data Objective Data Vital Signs: Vital Signs Temp Pulse Resp BP O2 Del Method 96.3 F L 74 18 193/88 H Room Air 07/27/24 13:53 07/27/24 13:53 07/27/24 13:53 07/27/24 13:53 07/20/24 13:03 Oxygen Delivery Method Room Air Weight: 195 lb Body Mass Index (BMI) 32.4 Charges/Coding Procedures Integumentary 111xxx-113xx: 57200 Sirisha subq tissue 20 sq cm/< Debridement Note Debridement Note Wound debrided: anterior leg wound Laterality: Left Type of Debridement: Excisional debridement Anesthesia Used: 5% Lidocaine Gel Depth: Down to and including healthy tissue and in the subcutaneous layer Percentage of wound debrided: 100 Instrument Used: 3mm curette Tissue Removed: Non viable tissue and slough Severity: Fat Layer Exposed Amount of bleeding with debridement: Mild Bleeding Controlled with: Compression and gauze Patient tolerated procedure: Patient tolerated procedure well Post-Debridement Measurements and Additional Note: Post-Debridement Measurements/Treatment WC - Nurse 1 - General Ulcer Assessment Start: 07/06/24 14:35 Freq: Status: Active Protocol: WC.LOWEXT Activity Type Activity Date Activity User E-sign Co-sign Detail Recorded Client Recorded Date Recorded By Document 07/06/24 14:37 KW [id number] 07/06/24 14:44 KW Document 07/13/24 13:06 BMF [id number] 07/13/24 13:19 BMF Document 07/20/24 13:03 BMF [id number] 07/20/24 13:11 BMF Document 07/27/24 13:53 DL [id number] 07/27/24 13:59 DL 07/06/24 07/13/24 07/20/24 14:37 13:06 13:03 WC - Today's Visit Information Type of service Follow-up Visit Follow-up Visit Follow-up Visit (Physician/TELEPHONE MAINTAINER (Physician/TELEPHONE MAINTAINER (Physician/TELEPHONE MAINTAINER ) ) ) Arrival Mode Ambulatory Ambulatory Ambulatory Transfer Assistance None Accompanied by sister sister sister Patient Identification Verified (Name & Yes Yes Yes ) Patient Requires Transmission-Based No Precautions Height and Weight Body Mass Index (BMI) 32.4 32.4 32.4 BMI Classification Obese Obese Obese Vital Signs Temperature (97.8 F-99.1 F) 96.8 F L 96.7 F L Temperature Source Temporal Temporal Pulse Rate (60-100) 63 64 58 L Pulse Location Monitor Monitor Monitor Respiratory Rate (12-18) 16 16 16 Respiratory rate source Observation Observation Observation Oxygen Delivery Method Room Air Room Air Room Air Blood Pressure (90/60-120/80) 165/82 H 168/66 H 171/66 H Blood Pressure Mean (mm Hg) 109 100 101 Source Monitor Monitor Monitor Position Semi-Fowlers Sitting Sitting Blood Pressure Location Right Arm Left Arm Left Arm History Since Last Visit- (Skip if this is Patient's initial visit) Have you changed medications since your No No No last visit? Any new allergies or adverse reactions No No No Had a fall/change in ADL's that may No No No increase risk of falls Signs or symptoms of abuse and/or No No No neglect since last visit Have you been in the hospital since your No No No last visit? Has dressing in place as prescribed Yes Yes Yes Has compression in place as prescribed N/A Yes Yes Has offloadiing in place as prescribed N/A N/A N/A Experienced any changes in pain level or No No No management Left Footwear Regular Shoe Regular Shoe Regular Shoe Right Footwear Regular Shoe Regular Shoe Regular Shoe Pain Scale: 0-10 Numeric Is Patient Pain Free? No Yes Yes LLE -Description Sharp -Intensity 4 -Alleviating Factors/Interventions Medication, Medicate when due -Comments needles/ shock type pain 07/27/24 13:53 - Today's Visit Information Type of service Follow-up Visit (Physician/TELEPHONE MAINTAINER ) Arrival Mode Ambulatory Transfer Assistance None Accompanied by Patient Identification Verified (Name & Yes ) Patient Requires Transmission-Based No Precautions Height and Weight Body Mass Index (BMI) 32.4 BMI Classification Obese Vital Signs Temperature (97.8 F-99.1 F) 96.3 F L Temperature Source Temporal Pulse Rate (60-100) 74 Pulse Location Monitor Respiratory Rate (12-18) 18 Respiratory rate source Observation Oxygen Delivery Method Blood Pressure (90/60-120/80) 193/88 H Blood Pressure Mean (mm Hg) 123 Source Monitor Position Blood Pressure Location History Since Last Visit- (Skip if this is Patient's initial visit) Have you changed medications since your No last visit? Any new allergies or adverse reactions No Had a fall/change in ADL's that may No increase risk of falls Signs or symptoms of abuse and/or No neglect since last visit Have you been in the hospital since your No last visit? Has dressing in place as prescribed Yes Has compression in place as prescribed Yes Has offloadiing in place as prescribed N/A Experienced any changes in pain level or No management Left Footwear Right Footwear Pain Scale: 0-10 Numeric Is Patient Pain Free? Yes LLE -Description -Intensity -Alleviating Factors/Interventions -Comments - Nurse 1 - General Ulcer Measurement Start: 07/06/24 14:35 Freq: Status: Active Protocol: Activity Type Activity Date Activity User E-sign Co-sign Detail Recorded Client Recorded Date Recorded By Document 07/06/24 14:37 KW [id number] 07/06/24 14:44 KW Document 07/13/24 13:06 BM [id number] 07/13/24 13:19 BM Document 07/20/24 13:03 BMF [id number] 07/20/24 13:11 BM Document 07/27/24 13:53 DL [id number] 07/27/24 13:59 DL 07/06/24 07/13/24 07/20/24 14:37 13:06 13:03 Wound Center Nurse 1 #1 LT CARDONA -Combined with other wound No No -Current Size (cm) - Length 0.3 0.7 0.3 -Current Size (cm) - Width 0.6 0.5 0.3 -Current Size (cm) - Depth 0.3 1 0.7 -Total Square Cm 0.18 0.35 0.09 -Date of Last Picture (Recall this 07/13/24 07/20/24 field) -Photo Taken Yes Yes -Epithelialization Small 1-33% Small 1-33% -Tunneling No No -Undermining/Tunneling No No -Circular Undermining No No -Exudate Amt Medium Medium Medium -Exudate Type Serosanguineous Serosanguineous Sanguineous -Wound Margin Distinct, Distinct, Distinct, Outline Outline Outline Attached Attached Attached -Granulation Amt Large (67-100%) Large (67-100%) Large (67-100%) -Granulation Quality Mercer Red Red -Slough/Fibrin No No -Necrosis Amt None Present (0 None Present (0 %) %) -Structure Exposed -Texture (Alicja-wound Skin Appearance) Assessed Assessed Assessed -Moisture (Alicja-wound Skin Appearance) Assessed, Assessed,Dry/ Assessed,Dry/ Weeping Scaly Scaly -Color (Alicja-wound Skin Appearance) Assessed Assessed Assessed -Temperature (Alicja-wound Skin No Abnormality No Abnormality No Abnormality Appearance) (Pt Warm) (Pt Warm) (Pt Warm) -Tenderness on Palpation (Alicja-wound No No No Skin Appearance) -Ulcer Cleansing Rinsed/ Rinsed/ Rinsed/ Irrigated with Irrigated with Irrigated with Saline Saline Saline -Foul Odor after Cleansing No Yes, Due to No Product Use -Anesthetic Used 5% Lidocaine 5% Lidocaine 5% Lidocaine Gel Gel Gel Lower Limb Edema Present Yes Left Calf (cm) 37 37.6 37.6 Left Ankle (cm) 21.3 20.8 20.8 07/27/24 13:53 Wound Center Nurse 1 #1 LT CARDONA -Combined with other wound -Current Size (cm) - Length 0.2 -Current Size (cm) - Width 0.2 -Current Size (cm) - Depth 0.7 -Total Square Cm 0.04 -Date of Last Picture (Recall this field) -Photo Taken Yes -Epithelialization -Tunneling -Undermining/Tunneling -Circular Undermining -Exudate Amt Small -Exudate Type Serosanguineous -Wound Margin Distinct, Outline Attached -Granulation Amt Small (1-33%) -Granulation Quality Red -Slough/Fibrin -Necrosis Amt None Present (0 %) -Structure Exposed N/A -Texture (Alicja-wound Skin Appearance) Scarring -Moisture (Alicja-wound Skin Appearance) No Abnormality -Color (Alicja-wound Skin Appearance) No Abnormality -Temperature (Alicja-wound Skin No Abnormality Appearance) (Pt Warm) -Tenderness on Palpation (Alicja-wound Skin Appearance) -Ulcer Cleansing Soap and Water -Foul Odor after Cleansing No -Anesthetic Used 5% Lidocaine Gel Lower Limb Edema Present Left Calf (cm) 37.8 Left Ankle (cm) 20.7 WC - Nurse 2 - General Ulcer CM Notes Start: 07/06/24 14:35 Freq: Status: Active Protocol: Activity Type Activity Date Activity User E-sign Co-sign Detail Recorded Client Recorded Date Recorded By Document 07/06/24 15:36 GM [id number] 07/06/24 15:41 GM Document 07/13/24 13:49 GM [id number] 07/13/24 13:50 GM Document 07/20/24 13:44 GM [id number] 07/20/24 13:45 GM Edit Result 07/20/24 13:44 GM (1) [id number] 07/27/24 14:30 GM Document 07/27/24 14:27 GM [id number] 07/27/24 14:30 GM (1) #1 LT CARDONA - Post Debridement (cm) - Depth 0.1 => 0.7 07/06/24 07/13/24 07/20/24 15:36 13:49 13:44 Wound Center Nurse 2 #1 LT CARDONA -Time 15:37 13:49 13:44 -Correct Patient Yes Yes Yes -Correct Side, Site, Position Yes Yes Yes -Correct Procedure Yes Yes Yes -Procedure Performed Yes Yes Yes -Type of Procedure Debridement Debridement Debridement -Clinical Debridement Subcutaneous Subcutaneous Subcutaneous -Tissue Removed Subcutaneous Subcutaneous Subcutaneous -Post Debridement (cm) - Length 0.8 0.6 0.5 -Post Debridement (cm) - Width 0.8 0.6 0.5 -Post Debridement (cm) - Depth 0.9 0.7 0.7 -Total Square (Post) (cm) 0.64 0.36 0.25 -Area of Debridement (cm) - Length 0.8 0.6 0.5 -Area of Debridement (cm) - Width 0.8 0.6 0.5 -Total Square (Area) (cm) 0.64 0.36 0.25 -Tunneling No No No -Undermining/Tunneling No No No -Circular Undermining No No No -Wound/Ulcer Outcome Not Healed Not Healed Not Healed -Ulcer Cleansing Rinsed/ Rinsed/ Rinsed/ Irrigated with Irrigated with Irrigated with Saline Saline Saline -Foul Odor after Cleansing No No No -Bioengineered Tissue No No No -Bleeding Controlled with Pressure Pressure Pressure -Treatment Response Procedure Procedure Procedure Tolerated Well Tolerated Well Tolerated Well -Debridement - Subq, 1st 20sq cm Yes Yes Yes Pain Scale: 0-10 Numeric Is Patient Pain Free? Yes Yes Yes 07/27/24 14:27 Wound Center Nurse 2 #1 LT CARDONA -Time 14:28 -Correct Patient Yes -Correct Side, Site, Position Yes -Correct Procedure Yes -Procedure Performed Yes -Type of Procedure Debridement -Clinical Debridement Subcutaneous -Tissue Removed Subcutaneous -Post Debridement (cm) - Length 0.3 -Post Debridement (cm) - Width 0.2 -Post Debridement (cm) - Depth 0.7 -Total Square (Post) (cm) 0.06 -Area of Debridement (cm) - Length 0.3 -Area of Debridement (cm) - Width 0.2 -Total Square (Area) (cm) 0.06 -Tunneling No -Undermining/Tunneling No -Circular Undermining No -Wound/Ulcer Outcome Not Healed -Ulcer Cleansing Rinsed/ Irrigated with Saline -Foul Odor after Cleansing No -Bioengineered Tissue No -Bleeding Controlled with Pressure -Treatment Response Procedure Tolerated Well -Debridement - Subq, 1st 20sq cm Yes Pain Scale: 0-10 Numeric Is Patient Pain Free? Yes WC - Nurse 3 - General Ulcer D/C NN Start: 07/06/24 14:35 Freq: Status: Active Protocol: Activity Type Activity Date Activity User E-sign Co-sign Detail Recorded Client Recorded Date Recorded By Document 07/06/24 15:50 KW [id number] 07/06/24 15:51 KW Document 07/13/24 14:05 [facility] [id number] 07/13/24 14:07 [facility] Document 07/20/24 14:03 [facility] [id number] 07/20/24 14:04 [facility] Document 07/27/24 14:53 DL [id number] 07/27/24 14:55 DL 07/06/24 07/13/24 07/20/24 15:50 14:05 14:03 Wound Care Center Nurse 3 #1 LT CARDONA -Ulcer Cleansing Rinsed/ Rinsed/ Irrigated with Irrigated with Saline Saline -Foul Odor after Cleansing No No -Primary Dressing Applied Nugauze, Iodoform 1/4in -Primary Dressing Applied Nugauze, Nugauze, Iodoform 1/2in, Iodoform 1/2in, Silicone Border Silicone Border Foam 4x4 Foam 4x4 -Other Dressing -Primary Dressing Covered/Secured with Dry Gauze & Roll Gauze -Nugauze, Iodoform 1/4in 1 -Nugauze, Iodoform 1/2in 1 1 -Silicone Border Foam 4x4 1 1 Left -Tubular Bandage Double Layer Double Layer Double Layer -Size of Tubigrip Used Size E Size E Size E -Size E ($) 2 2 2 Treatment Response Procedure Procedure Tolerated Well Tolerated Well Pain Scale: 0-10 Numeric Is Patient Pain Free? Yes Yes Yes Teaching: Wound Center Dressing Your Wound -Person Taught Patient,Family -Teaching Method Discussion -Response to teaching Verbalize Understanding Wound dressing -Person Taught Patient,Family -Teaching Method Discussion -Response to teaching Verbalize Understanding WC - Visit Discharge Discharge Condition Stable Stable Stable Ambulatory Status Ambulatory Ambulatory Ambulatory Transportation Private Auto Private Auto Private Auto Accompanied by sister sister accompanied Medication Reconcilliation completed & No provided to patient/care provider Clinical Summary of Care Provided Yes Notes: 07/27/24 14:53 Wound Care Center Nurse 3 #1 LT CARDONA -Ulcer Cleansing Rinsed/ Irrigated with Saline -Foul Odor after Cleansing No -Primary Dressing Applied -Primary Dressing Applied Silicone Border Foam 4x4 -Other Dressing Iodoform -Primary Dressing Covered/Secured with Dry Gauze -Nugauze, Iodoform 1/4in -Nugauze, Iodoform 1/2in -Silicone Border Foam 4x4 1 Left -Tubular Bandage Double Layer -Size of Tubigrip Used Size E -Size E ($) 2 Treatment Response Procedure Tolerated Well Pain Scale: 0-10 Numeric Is Patient Pain Free? Yes Teaching: Wound Center Dressing Your Wound -Person Taught -Teaching Method -Response to teaching Wound dressing -Person Taught -Teaching Method -Response to teaching WC - Visit Discharge Discharge Condition Stable Ambulatory Status Ambulatory Transportation Private Auto Accompanied by Medication Reconcilliation completed & provided to patient/care provider Clinical Summary of Care Provided Notes: BP rechecked: 180/90. S. Nico aware. Assessment/Plan Assessment/Plan (1) Non-healing wound of left lower extremity: CODE(S): S81.802A - Unspecified open wound, left lower leg, initial encounter (2) Cat bite of left lower leg: CODE(S): S81.852A - Open bite, left lower leg, initial encounter; W55.01XA - Bitten by cat, initial encounter QUALIFIERS: Encounter type: initial encounter Qualified Code(s): S81.852A - Open bite, left lower leg, initial encounter; W55.01XA - Bitten by cat, initial encounter PLAN: Plan Patient evaluated at the wound healing center. Wound care - To left anterior leg wound, pack iodoform gauze into the depth of the wound, top with gauze or Stacy SAP/silicone bordered dressing daily. Wash area with soap and water and pat dry before dressing changes. Compression - Double layer tubigrip to the left leg. Wound culture was obtained 06/23/24 at urgent care in [place]. Results faxed to us which showed Abundant Pasteurella multocida (+4), Rare Mixed Skin Microorganisms (+1), Abundant Mixed Anaerobic Bacteria (+4). She had been on Doxycycline and then switched to Flagyl for the anaerobic cultures and start her on Cefpodoxime for the Pasteurella. She will follow up 1-[address] Saenz for further evaluation of her wound. If he can not see her next week, she will follow up one week with me and the following week with Dr. Saenz. Instructed to call or come back sooner if develop any concerns.
== END 2024-07-29 23:59 | disposition home or self-care (01) ==
LOC: WC 13:45
PROVIDERS: PCP Family Medicine; Visit Provider Nurse Practitioner Family
DX: S81.852A Open bite, left lower leg, initial encounter (principal); W55.01XA Bitten by cat, initial encounter
CPT/HCPCS: 11042

== ENCOUNTER → 2024-08-01 | Outpatient (CLI) | payer MEDICARE, SELFPAY ==
--- NOTE | 2024-08-01 16:00 | RAD_ITS ---
PROCEDURE: LEFT TIBIA AND FIBULA REASON FOR EXAM: ANTERIOR ULCER ON CARDONA FOR 5 WEEKS. TECHNIQUE: TWO VIEWS OF THE LEFT TIBIA AND FIBULA COMPARISON: None. FINDINGS: No fracture. No suspicious bone lesion. Bones are osteopenic. Normal alignment at the knee and ankle. Soft tissues are unremarkable. RAD/Tibia & Fibula 2 Views IMPRESSION: Osteopenia. No acute osseous abnormalities are demonstrated. Reading Location: [facility]
== END | disposition home or self-care (01) ==
LOC: RAD 15:45
PROVIDERS: PCP Family Medicine; Referring Provider Surgery Plastic and Reconstructive Surgery; Visit Provider Surgery Plastic and Reconstructive Surgery
DX: L97.929 Non-pressure chronic ulcer of unspecified part of left lower leg with unspecified severity (principal)
CPT/HCPCS: 73590; 87070; 87075; 87077; 87186; 87205

== ENCOUNTER 2024-08-08 16:51 | Emergency (ER) | payer MEDICARE, SELFPAY ==
[2024-08-08 16:52] VITALS: BP 191/153; PULSE 56; RESP 16; TEMP 36.9; O2SAT 93; BMI 33.6
[2024-08-08 17:45] VITALS: BP 180/90
--- NOTE | 2024-08-08 17:53 | EDS_ITS ---
HPI History of Present Illness Chief Complaint: Hypertension Informant: patient Narrative Narrative: Sent in from wound care for evaluation elevated blood pressure. History of hypertension and on lisinopril she has been on lisinopril 30 mg daily for years. She states 2 weeks ago her daughter checked her blood pressure is 180 over 80s, she went to see her PCP a week ago, her blood pressure 150s over 80s her lisinopril was increased to 40 mg daily. She has been seeing wound care for her cat bite left lower leg for last 6 weeks on a weekly basis. Wound healing appropriately. No fevers. She is not a diabetic. Denies any pain. Parent blood pressure was 210/110 in the office was referred here. Denies headache chest pain dyspnea abdominal pain nausea or vomiting. She states she was never told her blood pressure being more elevated in her PCPs office. She intermittently uses NSAIDs however not chronically. [facility] Medical History Osteoporosis Chronic right hip pain Hyperlipidemia GERD (gastroesophageal reflux disease) HTN (hypertension), benign Home Medications ?Medication ?Instructions ?Recorded ?Last Taken ?Type amlodipine 5 mg tablet 5 mg PO DAILY #30 tabs 08/08 Unknown Rx lisinopril 40 mg tablet 40 mg PO DAILY 08/08/24 Unkn own History Allergy/AdvReac Type Severity Reaction Status Date / Time Penicillins Allergy Mild Hives Verified 08/08/24 16:54 Surgical History History of tonsillectomy H/O wrist surgery H/O: hysterectomy Knee joint replacement status Social History number of children: 3 current occupational status: retired pets and animals: Yes pets and animals: cat(s) Smoking Status: Never smoker alcohol intake: never substance use type: does not use ROS ROS ED Constitutional Constitutional ED: Denies chills, fever(s) or sweats ENT ENT ED: Denies sore throat Cardiovascular Cardiovascular: Denies chest pain, leg edema, palpitations or racing heartbeat Respiratory/Chest Respiratory/Chest: Denies cough, dyspnea or dyspnea on exertion Gastrointestinal Gastrointestinal: Denies abdominal pain, diarrhea, nausea or vomiting Genitourinary Genitourinary ED: Denies dysuria, hematuria or urinary frequency Musculoskeletal Musculoskeletal: Denies back pain, extremity pain or neck pain Integumentary Denies rash or wounds Neurologic Neurologic: Denies headache(s), paresthesias or weakness EXAM Physical Exam Const Vital Signs: 08/08/24 16:52 08/08/24 17:42 08/08/24 17:45 Temperature 98.5 F Temperature Source Oral Pulse Rate 56 L Respiratory Rate 16 Respiratory Effort Normal Respiratory Pattern Normal Blood Pressure 191/153 H 180/90 H Blood Pressure Mean 165 120 Pulse Ox 93 Oxygen Delivery Method Room Air 08/08/24 18:21 08/08/24 18:30 08/08/24 18:45 Temperature Temperature Source Pulse Rate 59 L Respiratory Rate 16 Respiratory Effort Respiratory Pattern Blood Pressure 172/72 H 188/80 H 160/97 H Blood Pressure Mean 105 116 118 Pulse Ox 95 Oxygen Delivery Method Room Air Positive well nourished and well developed General Appearance ED: well developed and NAD HEENT Reports moist mucous membranes normocephalic and atraumatic Eyes General Eye ED: Yes normal appearance of both eyes Neck full ROM Chest Wall Chest: Negative for tenderness Resp normal respiratory effort and normal air movement Effort and Inspection: symmetric chest movement; Negative for respiratory distress Cardio regular rate, regular rhythm and no murmurs Peripheral Pulses: pulses 2+ throughout GI normal to inspection, nondistended, normoactive bowel sounds and non-tender Palpation: Negative for guarding or rebound tenderness present Extremity normal to inspection General Extremety ED: Negative for edema or tenderness General Extremity: Negative for edema Neuro oriented x3 and no sensory deficits noted Sensorium / Orientation: awake and alert Skin no rashes or lesions noted and no wounds MDM MDM MDM Narrative Medical decision making narrative: Interventions / MDM: Differential diagnosis: Asymptomatic hypertension Diagnosis considered but do not suspect: No clinical hypertensive emergency My EKG interpretation: N/A Imaging independently reviewed and interpreted by myself: N/A External documents reviewed: N/A Test considered but not ordered:N/A ED course: Patient initial blood pressure 191/153 in triage however during my evaluation 180/90. Asymptomatic hypertension. Check basic labs will recheck her blood pressure. 185: Labs and stable. Recheck blood pressure trending down 160/97. I spoke with her PCP office and covering Dr. Chua, discussed patient's history and recent blood pressures and adjustments, will add 5 mg of amlodipine daily. She will keep her follow-up in 1 week. This was relayed to the patient. She will continue to check her blood pressure in the morning and at night before bedtime. She will keep a log. All questions were answered. Re-evaluation: stable Disposition discussed with patient/family/significant other: Patient and friend Case discussed with consulting clinician: PCP This note was generated with [employer]peet[employer] dictation software. It may contain incorrect words, spelling, and punctuation that were not noted in checking the note before signing. Lab Data Attestation: I reviewed the patient's lab results. Labs: Laboratory Results - last 24 hr 08/08/24 18:00 WBC 5.5 RBC 4.08 L Hgb 13.2 Hct 38.7 MCV 94.9 MCH 32.4 H MCHC 34.1 RDW Std Deviation 43.2 RDW Coeff of [place]wyn 12.4 Plt Count 145 L MPV 12.7 H Immature Gran % (Auto) 0.200 Neut % (Auto) 61.8 Lymph % (Auto) 26.7 [place] % (Auto) 7.5 Eos % (Auto) 2.7 Baso % (Auto) 1.1 H Absolute Neuts (auto) 3.4 Absolute Lymphs (auto) 1.46 Nucleated RBC % 0 Sodium 138 Potassium 4.3 Chloride 105 Carbon Dioxide 32.0 Anion Gap 2 L BUN 19 H Creatinine 0.69 Estim Creat Clear Calc 58.55 Est GFR (MDRD) Af Amer 104 Est GFR (MDRD) Non-Af 86 BUN/Creatinine Ratio 27.6 H Glucose 109 H Calcium 9.9 Discharge Plan Triage Chief Complaint: Hypertension ED Provider: Cruzito Pickering Dx/Rx/DC Orders Clinical Impression: HTN (hypertension), benign Instructions: ED High Blood Pressure Hypertension Prescriptions: New amlodipine 5 mg tablet 5 mg PO DAILY Qty: 30 0RF No Action lisinopril 40 mg tablet 40 mg PO DAILY Primary Care Provider: Maria Esther Ruiz Referrals: Maria Esther Ruiz MD [Primary Care Provider] - Keep Nalini appointment Activity Restrictions/Additional Instructions: CBC and BMP normal. Discussed with your PCP office. Start amlodipine as prescribed. May take at the same time as your lisinopril. Keep a log of your blood pressure in the morning when you wake up and before bedtime. Keep your follow-up with your doctor as scheduled. Print Language: Maldivian Disposition Disposition: Home, Self Care
[2024-08-08 18:10] LABS: Absolute Lymphocyte Count 1.46 X10^3/uL (0.83-4.51); Absolute Neutrophil Count 3.4 X10^3/uL (2.0-7.7); Basophil# 0.06 X10^3/uL; Basophil% 1.1 % (0-1); Eosinophil# 0.15 X10^3/uL; Eosinophils% 2.7 % (0-5); Hematocrit 38.7 % (37-47); Hemoglobin 13.2 g/dL (12.0-15.0); Lymphocyte # 1.46 X10^3/ul (0.83-4.51); Lymphocyte % 26.7 % (19-41); Mean Corp Hgb Conc 34.1 g/dL (32-36); Mean Corpuscular Hgb 32.4 pg (27.0-32.0); Mean Corpuscular Volume 94.9 fL (81-99); Mean Platelet Vol. 12.7 fl (6.2-12.0); Monocyte# 0.41 X10^3/uL; Monocyte% 7.5 % (0-10); NRBC Flagged by Analyzer 0 % (0-5); Neutrophil # 3.37 X10^3/uL (2.7-7.7); Neutrophil % 61.8 % (47-70); Platelet Count 145 K/mm3 (150-450); RBC Distribution Width CV 12.4 % (11.6-14.6); RBC Distribution Width SD 43.2 fl (35.1-43.9); Red Blood Count 4.08 M/mm3 (4.2-5.4); White Blood Count 5.5 K/mm3 (4.4-11.0)
[2024-08-08 18:21] VITALS: BP 172/72
[2024-08-08 18:30] VITALS: BP 188/80
[2024-08-08 18:34] LABS: Anion Gap 2 (5-15); BUN 19 mg/dL (7-18); BUN/Creat Ratio 27.6 RATIO (10-20); Calcium,Total 9.9 mg/dL (8.5-10.1); Chloride 105 mmol/L (98-107); Creatinine, Serum 0.69 mg/dL (0.55-1.02); EST Glomerular Filtration Rate 86 mL/min (>60); Est Glom Filt Rate - Afr Amer 104 mL/min (>60); Estimated Creatinine Clearance 58.55 ml/min; Glucose 109 mg/dL (74-106); Potassium 4.3 mmol/L (3.5-5.1); Sodium Level 138 mmol/L (136-145)
[2024-08-08 18:45] VITALS: BP 160/97; PULSE 59; RESP 16; O2SAT 95
[2024-08-08] MEDS: amLODIPine 5 MG Tablet PO (19:08)
[2024-08-08 19:10] VITALS: BP 180/74; PULSE 62; RESP 16; TEMP 36.8; O2SAT 95
== END 2024-08-08 19:25 | disposition home or self-care (01) ==
PROVIDERS: Emergency Provider Emergency Medicine; PCP Family Medicine; Visit Provider Emergency Medicine
DX: I10 Essential (primary) hypertension (principal); S81.852D Open bite, left lower leg, subsequent encounter; Z90.710 Acquired absence of both cervix and uterus; E78.5 Hyperlipidemia, unspecified; K21.9 Gastro-esophageal reflux disease without esophagitis; W55.01XD Bitten by cat, subsequent encounter
CPT/HCPCS: 80048; 85025; 99284

== ENCOUNTER 2024-08-22 14:30 | Outpatient (RCR) | payer MEDICARE, SELFPAY ==
[2024-07-30 02:02] VITALS: BP 193/88; PULSE 74; RESP 18; TEMP 35.7; BMI 32.4
[2024-08-01 14:07] VITALS: BP 153/62; PULSE 66; RESP 16; TEMP 36.2; BMI 32.4
--- NOTE | 2024-08-02 09:06 | PCM.WC.PN ---
History of Present Illness Date of Service: 08/01/24 Chief Complaint: Left anterior leg cat bite History of Wound: 84 year old female presents today for further evaluation of a cat bite to her left anterior leg that occurred on 06/17/24 by her own cat. She went to a urgent care in [place] who placed her on Doxycycline (she is PCN allergic). She went back to the urgent care a few days later because her symptoms (erythema, pain, swelling, and the bite was looking worse) were not improving. At that time, a wound culture was obtained and she was kept on the Doxycycline. She has been placing Bactroban ointment to the wound. She states that the erythema has started to resolve over the past several days. The wound culture results from the urgent care were faxed to us and they showed Abundant Pasteurella multocida (+4), Rare Mixed Skin Microorganisms (+1), Abundant Mixed Anaerobic Bacteria (+4). She is denying fever, chills, nausea, vomiting. She comes in today for further evaluation and treatment. Subjective Subjective HPI from 01 August 2024 Marixa Kline is a delightful 84-year-old female with past medical history of hypertension and a cat bite with subsequent nonhealing wound from May 2024 (1.5 months ago). She has been following at the wound care center with Ursula Walsh, nurse practitioner. Patient reports that she was bit by a cat on 17 June 2024 (her own cat no concerns for rabies) and she went to [place] ED and was placed on doxycycline. She went to an urgent care a few days later with signs of infection and was prescribed Bactroban. The wound was cultured and demonstrated Pasteurella. She was switched to Flagyl and Cefpodoxime, which she finished. She has never had an x-ray. The wound is having trouble healing and she has been doing iodoform packing. Objective Data Objective Data Vital Signs: Vital Signs Temp Pulse Resp BP O2 Del Method 97.1 F L 66 16 153/62 H Room Air 08/01/24 14:07 08/01/24 14:07 08/01/24 14:07 08/01/24 14:07 08/01/24 14:07 Oxygen Delivery Method Room Air Weight: 195 lb Body Mass Index (BMI) 32.4 Charges/Coding Visit Charges Office Visits / Consults: 21854 OV L4 New 45min (Reviewed chart, antibiotic history, performed the procedure, ordered and reviewed x-rays) Procedures Integumentary 111xxx-113xx: 32212 Sirisha subq tissue 20 sq cm/< (With 25 modifier) Physical Exam Narrative Left lower extremity wound just medial to the tibia and is 1 x 2 cm and 1 cm deep. No purulent drainage and no signs of surrounding induration or infection. Const alert and oriented x3 Debridement Note Debridement Note Wound debrided: Left leg anterior wound Laterality: Left Wound Grade/Stage: 3 Type of Debridement: Excisional debridement Anesthesia Used: 4% Lidocaine Solution and - (3cc of 1% lidocaine with 1:200,000 epinephrine) Depth: in the subcutaneous layer Percentage of wound debrided: 100 Instrument Used: 3mm curette and #15 blade Tissue Removed: Wound was excised in an ellipse and opened. Cultures taken Severity: Fat Layer Exposed Amount of bleeding with debridement: Moderate Bleeding Controlled with: Compression and gauze and - (3 cc of 1% lidocaine with 1:200,000 epinephrine) Patient tolerated procedure: Patient tolerated procedure well Post-Debridement Measurements and Additional Note: Post-Debridement Measurements/Treatment - Nurse 1 - General Ulcer Assessment Start: 08/01/24 14:07 Freq: Status: Active Protocol: KASEY Activity Type Activity Date Activity User E-sign Co-sign Detail Recorded Client Recorded Date Recorded By Document 08/01/24 14:07 [facility] [id number] 08/01/24 14:16 [facility] 08/01/24 14:07 - Today's Visit Information Type of service Follow-up Visit (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/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 ) Arrival Mode Ambulatory Transfer Assistance None Accompanied by SISTER Patient Identification Verified (Name & Yes ) Patient Requires Transmission-Based No Precautions Height and Weight Body Mass Index (BMI) 32.4 BMI Classification Obese Vital Signs Temperature (97.8 F-99.1 F) 97.1 F L Temperature Source Temporal Pulse Rate (60-100) 66 Pulse Location Monitor Respiratory Rate (12-18) 16 Respiratory rate source Observation Oxygen Delivery Method Room Air Blood Pressure (90/60-120/80) 153/62 H Blood Pressure Mean (mm Hg) 92 Source Monitor Position Sitting Blood Pressure Location Left Arm History Since Last Visit- (Skip if this is Patient's initial visit) Have you changed medications since your Yes last visit? Any new allergies or adverse reactions No Had a fall/change in ADL's that may No increase risk of falls Signs or symptoms of abuse and/or No neglect since last visit Have you been in the hospital since your No last visit? Has dressing in place as prescribed Yes Has compression in place as prescribed Yes Has offloadiing in place as prescribed N/A Experienced any changes in pain level or No management Left Footwear Regular Shoe Right Footwear Regular Shoe Pain Scale: 0-10 Numeric Is Patient Pain Free? Yes WC - Nurse 1 - General Ulcer Measurement Start: 08/01/24 14:07 Freq: Status: Active Protocol: Activity Type Activity Date Activity User E-sign Co-sign Detail Recorded Client Recorded Date Recorded By Document 08/01/24 14:07 [facility] [id number] 08/01/24 14:16 [facility] 08/01/24 14:07 Wound Center Nurse 1 #1 LT CARDONA -Combined with other wound No -Current Size (cm) - Length 0.3 -Current Size (cm) - Width 0.3 -Current Size (cm) - Depth 0.4 -Total Square Cm 0.09 -Date of Last Picture (Recall this 08/01/24 field) -Photo Taken Yes -Epithelialization Small 1-33% -Tunneling No -Undermining/Tunneling No -Circular Undermining No -Exudate Amt Medium -Exudate Type Serosanguineous -Wound Margin Distinct, Outline Attached -Granulation Amt Large (67-100%) -Granulation Quality Red -Slough/Fibrin No -Necrosis Amt None Present (0 %) -Texture (Mahi-wound Skin Appearance) Assessed -Moisture (Mahi-wound Skin Appearance) Assessed,Dry/ Scaly -Color (Mahi-wound Skin Appearance) Assessed -Temperature (Mahi-wound Skin No Abnormality Appearance) (Pt Warm) -Tenderness on Palpation (Mahi-wound No Skin Appearance) -Ulcer Cleansing Rinsed/ Irrigated with Saline -Foul Odor after Cleansing No -Anesthetic Used 5% Lidocaine Gel Lower Limb Edema Present Yes Left Calf (cm) 39 Left Ankle (cm) 20.5 IONA - Nurse 2 - General Ulcer CM Notes Start: 08/01/24 14:07 Freq: Status: Active Protocol: Activity Type Activity Date Activity User E-sign Co-sign Detail Recorded Client Recorded Date Recorded By Document 08/01/24 15:05 [id number] 08/01/24 15:21 08/01/24 15:05 Wound Center Nurse 2 #1 LT CARDONA -Time 15:17 -Correct Patient Yes -Correct Side, Site, Position Yes -Correct Procedure Yes -Procedure Performed Yes -Type of Procedure Debridement -Clinical Debridement Subcutaneous -Tissue Removed Subcutaneous -Post Debridement (cm) - Length 1 -Post Debridement (cm) - Width 2 -Post Debridement (cm) - Depth 1 -Total Square (Post) (cm) 2 -Area of Debridement (cm) - Length 1 -Area of Debridement (cm) - Width 2 -Total Square (Area) (cm) 2 -Tunneling No -Undermining/Tunneling No -Circular Undermining No -Wound/Ulcer Outcome Not Healed -Ulcer Cleansing Rinsed/ Irrigated with Saline -Foul Odor after Cleansing No -Bioengineered Tissue No -Bleeding Controlled with Pressure -Treatment Response Procedure Tolerated Well -Offloading No -Debridement - Subq, 1st 20sq cm Yes Pain Scale: 0-10 Numeric Is Patient Pain Free? Yes - Nurse 3 - General Ulcer D/C NN Start: 08/01/24 14:07 Freq: Status: Active Protocol: Activity Type Activity Date Activity User E-sign Co-sign Detail Recorded Client Recorded Date Recorded By Document 08/01/24 15:24 [id number] 08/01/24 15:24 08/01/24 15:24 Wound Care Center Nurse 3 #1 LT CARDONA -Ulcer Cleansing Rinsed/ Irrigated with Saline -Foul Odor after Cleansing No -Primary Dressing Applied Silicone Border Foam 4x4 -Silicone Border Foam 4x4 1 Pain Scale: 0-10 Numeric Is Patient Pain Free? Yes - Visit Discharge Discharge Condition Stable Ambulatory Status Ambulatory Transportation Private Auto Accompanied by sister Medication Reconcilliation completed & Yes provided to patient/care provider Clinical Summary of Care Provided Yes Assessment/Plan Assessment/Plan (1) Non-healing wound of left lower extremity: CODE(S): S81.802A - Unspecified open wound, left lower leg, initial encounter (2) Cat bite of left lower leg: CODE(S): S81.852A - Open bite, left lower leg, initial encounter; W55.01XA - Bitten by cat, initial encounter QUALIFIERS: Encounter type: initial encounter Qualified Code(s): S81.852A - Open bite, left lower leg, initial encounter; W55.01XA - Bitten by cat, initial encounter PLAN: Plan X-ray obtained today of the left tibia and fibula and per my read no signs of bony involvement or osteomyelitis There is no foreign body Wound was cultured today and we will follow-up the wound cultures (cultured after excision so this is a deep soft tissue culture) Plan for daily silver alginate changes . Discussed and showed the patient and her sister the dressing change. Follow-up in 1 week.
--- NOTE | 2024-08-02 12:15 | WC ---
PHOTO 08/01/24 LEFT CARDONA
[2024-08-08 15:48] VITALS: BP 196/93; PULSE 58; RESP 16; BMI 32.4
--- NOTE | 2024-08-08 17:37 | PCM.WC.PN ---
History of Present Illness Date of Service: 08/08/24 Chief Complaint: Left anterior leg cat bite History of Wound: 84 year old female presents today for further evaluation of a cat bite to her left anterior leg that occurred on 06/17/24 by her own cat. She went to a urgent care in [place] who placed her on Doxycycline (she is PCN allergic). She went back to the urgent care a few days later because her symptoms (erythema, pain, swelling, and the bite was looking worse) were not improving. At that time, a wound culture was obtained and she was kept on the Doxycycline. She has been placing Bactroban ointment to the wound. She states that the erythema has started to resolve over the past several days. The wound culture results from the urgent care were faxed to us and they showed Abundant Pasteurella multocida (+4), Rare Mixed Skin Microorganisms (+1), Abundant Mixed Anaerobic Bacteria (+4). She is denying fever, chills, nausea, vomiting. She comes in today for further evaluation and treatment. Subjective Subjective HPI from 01 August 2024 Marixa Kline is a delightful 84-year-old female with past medical history of hypertension and a cat bite with subsequent nonhealing wound from May 2024 (1.5 months ago). She has been following at the wound care center with Ursula Walsh, nurse practitioner. Patient reports that she was bit by a cat on 17 June 2024 (her own cat no concerns for rabies) and she went to [place] ED and was placed on doxycycline. She went to an urgent care a few days later with signs of infection and was prescribed Bactroban. The wound was cultured and demonstrated Pasteurella. She was switched to Flagyl and Cefpodoxime, which she finished. She has never had an x-ray. The wound is having trouble healing and she has been doing iodoform packing. CURRENT ENCOUNTER, 08 AUG 2024: Doing well overall. Has been doing dressing changes. X-rays negative for osteomyelitis. Objective Data Objective Data Vital Signs: Vital Signs Temp Pulse Resp BP O2 Del Method 97.1 F L 58 L 16 196/93 H Room Air 08/01/24 14:07 08/08/24 15:48 08/08/24 15:48 08/08/24 15:48 08/08/24 15:48 Oxygen Delivery Method Room Air Weight: 195 lb Body Mass Index (BMI) 32.4 Charges/Coding Procedures Integumentary 111xxx-113xx: 95008 Sirisha musc/fascia 20 sq cm/< Physical Exam Narrative Left lower extremity wound just medial to the tibia and is 0.75 x 0.5 cm and 1 cm deep. No purulent drainage and no signs of surrounding induration or infection. Const alert and oriented x3 Debridement Note Debridement Note Wound debrided: Left PRE-tibial wound Laterality: Left Wound Grade/Stage: 3 Type of Debridement: Excisional debridement Anesthesia Used: 4% Lidocaine Solution Depth: to muscle (Exposed fascia) Percentage of wound debrided: 100 Instrument Used: 7mm curette Severity: Necrosis of Muscle (Exposed fascia) Amount of bleeding with debridement: Mild Bleeding Controlled with: Compression and gauze Patient tolerated procedure: Patient tolerated procedure well Post-Debridement Measurements and Additional Note: Post-Debridement Measurements/Treatment - Nurse 1 - General Ulcer Assessment Start: 08/01/24 14:07 Freq: Status: Active Protocol: KASEY Activity Type Activity Date Activity User E-sign Co-sign Detail Recorded Client Recorded Date Recorded By Document 08/01/24 14:07 [employer] [id number] 08/01/24 14:16 [facility] Document 08/08/24 15:48 [facility] [id number] 08/08/24 16:02 [facility] 08/01/24 08/08/24 14:07 15:48 - Today's Visit Information Type of service Follow-up Visit Follow-up Visit (Physician/SADDLE AND SIDE WIRE STITCHER (Physician/SADDLE AND SIDE WIRE STITCHER ) ) Arrival Mode Ambulatory Ambulatory Transfer Assistance None None Accompanied by SISTER sister Patient Identification Verified (Name & Yes Yes ) Patient Requires Transmission-Based No No Precautions Height and Weight Body Mass Index (BMI) 32.4 32.4 BMI Classification Obese Obese Vital Signs Temperature (97.8 F-99.1 F) 97.1 F L Temperature Source Temporal Pulse Rate (60-100) 66 58 L Pulse Location Monitor Monitor Respiratory Rate (12-18) 16 16 Respiratory rate source Observation Observation Oxygen Delivery Method Room Air Room Air Blood Pressure (90/60-120/80) 153/62 H 196/93 H Blood Pressure Mean (mm Hg) 92 127 Source Monitor Monitor Position Sitting Sitting Blood Pressure Location Left Arm Right Arm Comment manual rechk 218/[address] kwok . pt denies sx History Since Last Visit- (Skip if this is Patient's initial visit) Have you changed medications since your Yes No last visit? Any new allergies or adverse reactions No No Had a fall/change in ADL's that may No No increase risk of falls Signs or symptoms of abuse and/or No No neglect since last visit Have you been in the hospital since your No No last visit? Has dressing in place as prescribed Yes Yes Has compression in place as prescribed Yes Yes Has offloadiing in place as prescribed N/A N/A Experienced any changes in pain level or No No management Left Footwear Regular Shoe Regular Shoe Right Footwear Regular Shoe Regular Shoe Pain Scale: 0-10 Numeric Is Patient Pain Free? Yes Yes WC - Nurse 1 - General Ulcer Measurement Start: 08/01/24 14:07 Freq: Status: Active Protocol: Activity Type Activity Date Activity User E-sign Co-sign Detail Recorded Client Recorded Date Recorded By Document 08/01/24 14:07 [facility] [id number] 08/01/24 14:16 [facility] Document 08/08/24 15:48 [facility] [id number] 08/08/24 16:02 BM 08/01/24 08/08/24 14:07 15:48 Wound Center Nurse 1 #1 LT CARDONA -Combined with other wound No No -Current Size (cm) - Length 0.3 0.7 -Current Size (cm) - Width 0.3 0.3 -Current Size (cm) - Depth 0.4 0.6 -Total Square Cm 0.09 0.21 -Date of Last Picture (Recall this 08/01/24 08/08/24 field) -Photo Taken Yes Yes -Epithelialization Small 1-33% Small 1-33% -Tunneling No No -Undermining/Tunneling No No -Circular Undermining No No -Exudate Amt Medium Medium -Exudate Type Serosanguineous Sanguineous -Wound Margin Distinct, Distinct, Outline Outline Attached Attached -Granulation Amt Large (67-100%) Large (67-100%) -Granulation Quality Red Red -Slough/Fibrin No No -Necrosis Amt None Present (0 None Present (0 %) %) -Texture (Mahi-wound Skin Appearance) Assessed Assessed -Moisture (Mahi-wound Skin Appearance) Assessed,Dry/ Assessed Scaly -Color (Mahi-wound Skin Appearance) Assessed Assessed -Temperature (Mahi-wound Skin No Abnormality No Abnormality Appearance) (Pt Warm) (Pt Warm) -Tenderness on Palpation (Mahi-wound No No Skin Appearance) -Ulcer Cleansing Rinsed/ Rinsed/ Irrigated with Irrigated with Saline Saline -Foul Odor after Cleansing No No -Anesthetic Used 5% Lidocaine 5% Lidocaine Gel Gel Lower Limb Edema Present Yes Left Calf (cm) 39 38.4 Left Ankle (cm) 20.5 20.4 - Nurse 2 - General Ulcer CM Notes Start: 08/01/24 14:07 Freq: Status: Active Protocol: Activity Type Activity Date Activity User E-sign Co-sign Detail Recorded Client Recorded Date Recorded By Document 08/01/24 15:05 [id number] 08/01/24 15:21 Document 08/08/24 16:26 [id number] 08/08/24 16:28 08/01/24 08/08/24 15:05 16:26 Wound Center Nurse 2 #1 LT CARDONA -Time 15:17 16:27 -Correct Patient Yes Yes -Correct Side, Site, Position Yes Yes -Correct Procedure Yes Yes -Procedure Performed Yes Yes -Type of Procedure Debridement Debridement -Clinical Debridement Subcutaneous Muscle / Fascia -Tissue Removed Subcutaneous Fascia -Post Debridement (cm) - Length 1 0.7 -Post Debridement (cm) - Width 2 0.5 -Post Debridement (cm) - Depth 1 0.7 -Total Square (Post) (cm) 2 0.35 -Area of Debridement (cm) - Length 1 0.7 -Area of Debridement (cm) - Width 2 0.5 -Total Square (Area) (cm) 2 0.35 -Tunneling No No -Undermining/Tunneling No No -Circular Undermining No No -Wound/Ulcer Outcome Not Healed Not Healed -Ulcer Cleansing Rinsed/ Rinsed/ Irrigated with Irrigated with Saline Saline -Foul Odor after Cleansing No No -Bioengineered Tissue No No -Bleeding Controlled with Pressure Pressure -Treatment Response Procedure Procedure Tolerated Well Tolerated Well -Offloading No No -Debridement - Subq, 1st 20sq cm Yes -Debridement - Muscle / Fascia, 1st Yes 20sq cm Pain Scale: 0-10 Numeric Is Patient Pain Free? Yes Yes WC - Nurse 3 - General Ulcer D/C NN Start: 08/01/24 14:07 Freq: Status: Active Protocol: Activity Type Activity Date Activity User E-sign Co-sign Detail Recorded Client Recorded Date Recorded By Document 08/01/24 15:24 JF [id number] 08/01/24 15:24 JORDAN 08/01/24 15:24 Wound Care Center Nurse 3 #1 LT CARDONA -Ulcer Cleansing Rinsed/ Irrigated with Saline -Foul Odor after Cleansing No -Primary Dressing Applied Silicone Border Foam 4x4 -Silicone Border Foam 4x4 1 Pain Scale: 0-10 Numeric Is Patient Pain Free? Yes WC - Visit Discharge Discharge Condition Stable Ambulatory Status Ambulatory Transportation Private Auto Accompanied by sister Medication Reconcilliation completed & Yes provided to patient/care provider Clinical Summary of Care Provided Yes Assessment/Plan Assessment/Plan (1) Non-healing wound of left lower extremity: CODE(S): S81.802A - Unspecified open wound, left lower leg, initial encounter (2) Cat bite of left lower leg: CODE(S): S81.852A - Open bite, left lower leg, initial encounter; W55.01XA - Bitten by cat, initial encounter QUALIFIERS: Encounter type: initial encounter Qualified Code(s): S81.852A - Open bite, left lower leg, initial encounter; W55.01XA - Bitten by cat, initial encounter PLAN: Plan Plan from 01 August 2024 X-ray obtained today of the left tibia and fibula and per my read no signs of bony involvement or osteomyelitis There is no foreign body Wound was cultured today and we will follow-up the wound cultures (cultured after excision so this is a deep soft tissue culture) Plan for daily silver alginate changes . Discussed and showed the patient and her sister the dressing change. Follow-up in 1 week. Plan from 08 August 2024: Cultures demonstrated Staphylococcus susceptible to doxycycline. She is placed on doxycycline and Thursday, 05 August 2024. She has been tolerating the antibiotic. She will finish a short course for it and we will continue to examine the wound clinically for signs of infection. Plan for Aquacel Ag twice daily. Patient's blood pressure was 220/110 when I took it, and the nursing staff was also getting severely elevated blood pressures. We sent the patient emergently to the emergency department for evaluation of her blood pressure and she agreed to go. Follow-up in the wound care center in 1 week
--- NOTE | 2024-08-09 08:58 | WC ---
PHOTO 08/08/24 LEFT CARDONA
[2024-08-15 13:37] VITALS: BP 174/71; PULSE 59; RESP 16; TEMP 35.6; BMI 32.4
--- NOTE | 2024-08-15 16:13 | NURSING ---
PHOTO 08/15/24 Left Crews
--- NOTE | 2024-08-15 17:32 | PCM.WC.PN ---
History of Present Illness Date of Service: 08/15/24 Chief Complaint: Left anterior leg cat bite History of Wound: 84 year old female presents today for further evaluation of a cat bite to her left anterior leg that occurred on 06/17/24 by her own cat. She went to a urgent care in [place] who placed her on Doxycycline (she is PCN allergic). She went back to the urgent care a few days later because her symptoms (erythema, pain, swelling, and the bite was looking worse) were not improving. At that time, a wound culture was obtained and she was kept on the Doxycycline. She has been placing Bactroban ointment to the wound. She states that the erythema has started to resolve over the past several days. The wound culture results from the urgent care were faxed to us and they showed Abundant Pasteurella multocida (+4), Rare Mixed Skin Microorganisms (+1), Abundant Mixed Anaerobic Bacteria (+4). She is denying fever, chills, nausea, vomiting. She comes in today for further evaluation and treatment. Subjective Subjective HPI from 01 August 2024 Marixa Kline is a delightful 84-year-old female with past medical history of hypertension and a cat bite with subsequent nonhealing wound from May 2024 (1.5 months ago). She has been following at the wound care center with Ursula Walsh, nurse practitioner. Patient reports that she was bit by a cat on 17 June 2024 (her own cat no concerns for rabies) and she went to [place] ED and was placed on doxycycline. She went to an urgent care a few days later with signs of infection and was prescribed Bactroban. The wound was cultured and demonstrated Pasteurella. She was switched to Flagyl and Cefpodoxime, which she finished. She has never had an x-ray. The wound is having trouble healing and she has been doing iodoform packing. 08 AUG 2024: Doing well overall. Has been doing dressing changes. X-rays negative for osteomyelitis. CURRENT ENCOUNTER,15 Aug 2024: Doing well overall with dressing changes. No fevers or chills. She went to the emergency department after last visit and has been having better blood pressure management and and saw her PCP today and had a blood pressure of 130 systolic. Objective Data Objective Data Vital Signs: Vital Signs Temp Pulse Resp BP O2 Del Method 96.1 F L 59 L 16 174/71 H Room Air 08/15/24 13:37 08/15/24 13:37 08/15/24 13:37 08/15/24 13:37 08/15/24 13:37 Oxygen Delivery Method Room Air Weight: 195 lb Body Mass Index (BMI) 32.4 Charges/Coding Procedures Integumentary 111xxx-113xx: [id number] Sirisha subq tissue 20 sq cm/< Physical Exam Narrative Left lower extremity wound just medial to the tibia and is 0.7 x 0.3cm and 0.3 cm deep. No purulent drainage and no signs of surrounding induration or infection. Smaller today Const alert and oriented x3 Debridement Note Debridement Note Wound debrided: Left leg wound Laterality: Left Wound Grade/Stage: 3 Type of Debridement: Excisional debridement Anesthesia Used: 4% Lidocaine Solution Depth: Down to and including healthy tissue and in the subcutaneous layer Percentage of wound debrided: 100 Instrument Used: 3mm curette Severity: Fat Layer Exposed Amount of bleeding with debridement: Mild Bleeding Controlled with: Compression and gauze Patient tolerated procedure: Patient tolerated procedure well Post-Debridement Measurements and Additional Note: Post-Debridement Measurements/Treatment - Nurse 1 - General Ulcer Assessment Start: 08/01/24 14:07 Freq: Status: Active Protocol: KASEY Activity Type Activity Date Activity User E-sign Co-sign Detail Recorded Client Recorded Date Recorded By Document 08/01/24 14:07 [facility] [id number] 08/01/24 14:16 [facility] Document 08/08/24 15:48 [facility] [id number] 08/08/24 16:02 [facility] Document 08/15/24 13:37 [facility] [id number] 08/15/24 13:47 [facility] 08/01/24 08/08/24 08/15/24 14:07 15:48 13:37 - Today's Visit Information Type of service Follow-up Visit Follow-up Visit Follow-up Visit (Physician/PRINCIPAL ARCHITECT (Physician/PRINCIPAL ARCHITECT (Physician/PRINCIPAL ARCHITECT ) ) ) Arrival Mode Ambulatory Ambulatory Ambulatory Transfer Assistance None None None Accompanied by SISTER sister sister Patient Identification Verified (Name & Yes Yes Yes ) Patient Requires Transmission-Based No No Precautions Height and Weight Body Mass Index (BMI) 32.4 32.4 32.4 BMI Classification Obese Obese Obese Vital Signs Temperature (97.8 F-99.1 F) 97.1 F L 96.1 F L Temperature Source Temporal Temporal Pulse Rate (60-100) 66 58 L 59 L Pulse Location Monitor Monitor Monitor Respiratory Rate (12-18) 16 16 16 Respiratory rate source Observation Observation Observation Oxygen Delivery Method Room Air Room Air Room Air Blood Pressure (90/60-120/80) 153/62 H 196/93 H 174/71 H Blood Pressure Mean (mm Hg) 92 127 105 Source Monitor Monitor Monitor Position Sitting Sitting Sitting Blood Pressure Location Left Arm Right Arm Left Arm Comment manual rechk 218/[address] kwok . pt denies sx History Since Last Visit- (Skip if this is Patient's initial visit) Have you changed medications since your Yes No No last visit? Any new allergies or adverse reactions No No No Had a fall/change in ADL's that may No No No increase risk of falls Signs or symptoms of abuse and/or No No No neglect since last visit Have you been in the hospital since your No No No last visit? Has dressing in place as prescribed Yes Yes Yes Has compression in place as prescribed Yes Yes Yes Has offloadiing in place as prescribed N/A N/A N/A Experienced any changes in pain level or No No No management Left Footwear Regular Shoe Regular Shoe Regular Shoe Right Footwear Regular Shoe Regular Shoe Regular Shoe Pain Scale: 0-10 Numeric Is Patient Pain Free? Yes Yes Yes WC - Nurse 1 - General Ulcer Measurement Start: 08/01/24 14:07 Freq: Status: Active Protocol: Activity Type Activity Date Activity User E-sign Co-sign Detail Recorded Client Recorded Date Recorded By Document 08/01/24 14:07 [facility] [id number] 08/01/24 14:16 [facility] Document 08/08/24 15:48 [facility] [id number] 08/08/24 16:02 [facility] Document 08/15/24 13:37 [facility] [id number] 08/15/24 13:47 [facility] 08/01/24 08/08/24 08/15/24 14:07 15:48 13:37 Wound Center Nurse 1 #1 LT CARDONA -Combined with other wound No No No -Current Size (cm) - Length 0.3 0.7 0.6 -Current Size (cm) - Width 0.3 0.3 0.2 -Current Size (cm) - Depth 0.4 0.6 0.3 -Total Square Cm 0.09 0.21 0.12 -Date of Last Picture (Recall this 08/01/24 08/08/24 08/15/24 field) -Photo Taken Yes Yes Yes -Epithelialization Small 1-33% Small 1-33% Small 1-33% -Tunneling No No No -Undermining/Tunneling No No No -Circular Undermining No No No -Exudate Amt Medium Medium Medium -Exudate Type Serosanguineous Sanguineous Serosanguineous -Wound Margin Distinct, Distinct, Distinct, Outline Outline Outline Attached Attached Attached -Granulation Amt Large (67-100%) Large (67-100%) Large (67-100%) -Granulation Quality Red Red Red -Slough/Fibrin No No Yes -Necrosis Amt None Present (0 None Present (0 Small (1-33%) %) %) -Necrotic Tissue Type Adherent Slough -Texture (Mahi-wound Skin Appearance) Assessed Assessed Assessed, Scarring -Moisture (Mahi-wound Skin Appearance) Assessed,Dry/ Assessed Assessed,Dry/ Scaly Scaly -Color (Mahi-wound Skin Appearance) Assessed Assessed Assessed -Temperature (Mahi-wound Skin No Abnormality No Abnormality No Abnormality Appearance) (Pt Warm) (Pt Warm) (Pt Warm) -Tenderness on Palpation (Mahi-wound No No No Skin Appearance) -Ulcer Cleansing Rinsed/ Rinsed/ Rinsed/ Irrigated with Irrigated with Irrigated with Saline Saline Saline -Foul Odor after Cleansing No No No -Anesthetic Used 5% Lidocaine 5% Lidocaine 5% Lidocaine Gel Gel Gel Lower Limb Edema Present Yes Yes Left Calf (cm) 39 38.4 39.1 Left Ankle (cm) 20.5 20.4 20.7 WC - Nurse 2 - General Ulcer CM Notes Start: 08/01/24 14:07 Freq: Status: Active Protocol: Activity Type Activity Date Activity User E-sign Co-sign Detail Recorded Client Recorded Date Recorded By Document 08/01/24 15:05 JORDAN [id number] 08/01/24 15:21 Document 08/08/24 16:26 JF [id number] 08/08/24 16:28 Document 08/15/24 13:57 [id number] 08/15/24 14:02 08/01/24 08/08/24 08/15/24 15:05 16:26 13:57 Wound Center Nurse 2 #1 LT CARDONA -Time 15:17 16:27 14:00 -Correct Patient Yes Yes Yes -Correct Side, Site, Position Yes Yes Yes -Correct Procedure Yes Yes Yes -Procedure Performed Yes Yes Yes -Type of Procedure Debridement Debridement Debridement -Clinical Debridement Subcutaneous Muscle / Fascia Subcutaneous -Tissue Removed Subcutaneous Fascia Subcutaneous -Post Debridement (cm) - Length 1 0.7 0.7 -Post Debridement (cm) - Width 2 0.5 0.3 -Post Debridement (cm) - Depth 1 0.7 0.3 -Total Square (Post) (cm) 2 0.35 0.21 -Area of Debridement (cm) - Length 1 0.7 0.7 -Area of Debridement (cm) - Width 2 0.5 0.3 -Total Square (Area) (cm) 2 0.35 0.21 -Tunneling No No No -Undermining/Tunneling No No No -Circular Undermining No No No -Wound/Ulcer Outcome Not Healed Not Healed Not Healed -Ulcer Cleansing Rinsed/ Rinsed/ Rinsed/ Irrigated with Irrigated with Irrigated with Saline Saline Saline -Foul Odor after Cleansing No No No -Bioengineered Tissue No No No -Bleeding Controlled with Pressure Pressure Pressure -Treatment Response Procedure Procedure Procedure Tolerated Well Tolerated Well Tolerated Well -Offloading No No No -Debridement - Subq, 1st 20sq cm Yes Yes -Debridement - Muscle / Fascia, 1st Yes 20sq cm Pain Scale: 0-10 Numeric Is Patient Pain Free? Yes Yes Yes WC - Nurse 3 - General Ulcer D/C NN Start: 08/01/24 14:07 Freq: Status: Active Protocol: Activity Type Activity Date Activity User E-sign Co-sign Detail Recorded Client Recorded Date Recorded By Document 08/01/24 15:24 [id number] 08/01/24 15:24 Document 08/15/24 14:14 [facility] [id number] 08/15/24 14:15 [facility] 08/01/24 08/15/24 15:24 14:14 Wound Care Center Nurse 3 #1 LT CARDONA -Ulcer Cleansing Rinsed/ Rinsed/ Irrigated with Irrigated with Saline Saline -Foul Odor after Cleansing No No -Primary Dressing Applied Silicone Border C Hydrogel Foam 4x4 -Primary Dressing Covered/Secured with Dry Gauze & Roll Gauze, Secured with Tape -Silicone Border Foam 4x4 1 Left -Tubular Bandage Single Layer -Size of Tubigrip Used Size E -Size E ($) 1 Treatment Response Procedure Tolerated Well Pain Scale: 0-10 Numeric Is Patient Pain Free? Yes Yes WC - Visit Discharge Discharge Condition Stable Stable Ambulatory Status Ambulatory Ambulatory Transportation Private Auto Private Auto Accompanied by sister twin sister Medication Reconcilliation completed & Yes provided to patient/care provider Clinical Summary of Care Provided Yes Assessment/Plan Assessment/Plan (1) Non-healing wound of left lower extremity: CODE(S): S81.802A - Unspecified open wound, left lower leg, initial encounter (2) Cat bite of left lower leg: CODE(S): S81.852A - Open bite, left lower leg, initial encounter; W55.01XA - Bitten by cat, initial encounter QUALIFIERS: Encounter type: initial encounter Qualified Code(s): S81.852A - Open bite, left lower leg, initial encounter; W55.01XA - Bitten by cat, initial encounter PLAN: Plan Plan from 01 August 2024 X-ray obtained today of the left tibia and fibula and per my read no signs of bony involvement or osteomyelitis There is no foreign body Wound was cultured today and we will follow-up the wound cultures (cultured after excision so this is a deep soft tissue culture) Plan for daily silver alginate changes . Discussed and showed the patient and her sister the dressing change. Follow-up in 1 week. Plan from 08 August 2024: Cultures demonstrated Staphylococcus susceptible to doxycycline. She is placed on doxycycline and Thursday, 05 August 2024. She has been tolerating the antibiotic. She will finish a short course for it and we will continue to examine the wound clinically for signs of infection. Plan for Aquacel Ag twice daily. Patient's blood pressure was 220/110 when I took it, and the nursing staff was also getting severely elevated blood pressures. We sent the patient emergently to the emergency department for evaluation of her blood pressure and she agreed to go. Follow-up in the wound care center in 1 week Plan from 15 August 2024: Wound appears to be healing in nicely. Plan to alternate collagen hydrogel and Aquacel Ag. Appears to be healing from the inside out and granulating well. No exposed critical structures at the base (just healthy granulation tissue). Follow-up in 1 week If she continues to have chronic nonhealing wound in the lower extremity, I will order ABIs at the next visit as she may have a vascular insufficiency problem, Although this wound is small and will likely heal regardless.
[2024-08-22 14:08] VITALS: BP 169/81; PULSE 66; RESP 18; TEMP 36.2; BMI 32.4
--- NOTE | 2024-08-23 10:17 | PCM.WC.PN ---
History of Present Illness Date of Service: 08/22/24 Chief Complaint: Left anterior leg cat bite History of Wound: 84 year old female presents today for further evaluation of a cat bite to her left anterior leg that occurred on 06/17/24 by her own cat. She went to a urgent care in [place] who placed her on Doxycycline (she is PCN allergic). She went back to the urgent care a few days later because her symptoms (erythema, pain, swelling, and the bite was looking worse) were not improving. At that time, a wound culture was obtained and she was kept on the Doxycycline. She has been placing Bactroban ointment to the wound. She states that the erythema has started to resolve over the past several days. The wound culture results from the urgent care were faxed to us and they showed Abundant Pasteurella multocida (+4), Rare Mixed Skin Microorganisms (+1), Abundant Mixed Anaerobic Bacteria (+4). She is denying fever, chills, nausea, vomiting. She comes in today for further evaluation and treatment. Subjective Subjective HPI from 01 August 2024 Marixa Kline is a delightful 84-year-old female with past medical history of hypertension and a cat bite with subsequent nonhealing wound from May 2024 (1.5 months ago). She has been following at the wound care center with Ursula Walsh, nurse practitioner. Patient reports that she was bit by a cat on 17 June 2024 (her own cat no concerns for rabies) and she went to [place] [facility] and was placed on doxycycline. She went to an urgent care a few days later with signs of infection and was prescribed Bactroban. The wound was cultured and demonstrated Pasteurella. She was switched to Flagyl and Cefpodoxime, which she finished. She has never had an x-ray. The wound is having trouble healing and she has been doing iodoform packing. 08 AUG 2024: Doing well overall. Has been doing dressing changes. X-rays negative for osteomyelitis. 15 Aug 2024: Doing well overall with dressing changes. No fevers or chills. She went to the emergency department after last visit and has been having better blood pressure management and and saw her PCP today and had a blood pressure of 130 systolic. CURRENT ENCOUNTER, 22 Aug 2024: Doing well with a much smaller wound. She is happy with the result so far. Blood pressure better controlled today. Objective Data Objective Data Vital Signs: Vital Signs Temp Pulse Resp BP O2 Del Method 97.2 F L 66 18 169/81 H Room Air 08/22/24 14:08 08/22/24 14:08 08/22/24 14:08 08/22/24 14:08 08/22/24 14:08 Oxygen Delivery Method Room Air Weight: 195 lb Body Mass Index (BMI) 32.4 Charges/Coding Procedures Integumentary [id number]: [id number] Global Visit Physical Exam Narrative Left lower extremity wound just medial to the tibia and is 0.2 x 0.3cm and 0.1 cm deep. No purulent drainage and no signs of surrounding induration or infection. Smaller today Const alert and oriented x3 Debridement Note Debridement Note Post-Debridement Measurements and Additional Note: Post-Debridement Measurements/Treatment WC - Nurse 1 - General Ulcer Assessment Start: 08/01/24 14:07 Freq: Status: Active Protocol: .CELSA Activity Type Activity Date Activity User E-sign Co-sign Detail Recorded Client Recorded Date Recorded By Document 08/01/24 14:07 [employer] [id number] 08/01/24 14:16 [employer] Document 08/08/24 15:48 [employer] [id number] 08/08/24 16:02 [employer] Document 08/15/24 13:37 BM [id number] 08/15/24 13:47 [employer] Document 08/22/24 14:08 KW [id number] 08/22/24 14:10 KW 08/01/24 08/08/24 08/15/24 14:07 15:48 13:37 - Today's Visit Information Type of service Follow-up Visit Follow-up Visit Follow-up Visit (Physician/CHEMICAL MACHINE TENDER (Physician/CHEMICAL MACHINE TENDER (Physician/CHEMICAL MACHINE TENDER ) ) ) Arrival Mode Ambulatory Ambulatory Ambulatory Transfer Assistance None None None Accompanied by SISTER sister sister Patient Identification Verified (Name & Yes Yes Yes ) Patient Requires Transmission-Based No No Precautions Height and Weight Body Mass Index (BMI) 32.4 32.4 32.4 BMI Classification Obese Obese Obese Vital Signs Temperature (97.8 F-99.1 F) 97.1 F L 96.1 F L Temperature Source Temporal Temporal Pulse Rate (60-100) 66 58 L 59 L Pulse Location Monitor Monitor Monitor Respiratory Rate (12-18) 16 16 16 Respiratory rate source Observation Observation Observation Oxygen Delivery Method Room Air Room Air Room Air Blood Pressure (90/60-120/80) 153/62 H 196/93 H 174/71 H Blood Pressure Mean (mm Hg) 92 127 105 Source Monitor Monitor Monitor Position Sitting Sitting Sitting Blood Pressure Location Left Arm Right Arm Left Arm Comment manual rechk 218/[address] kwok . pt denies sx History Since Last Visit- (Skip if this is Patient's initial visit) Have you changed medications since your Yes No No last visit? Any new allergies or adverse reactions No No No Had a fall/change in ADL's that may No No No increase risk of falls Signs or symptoms of abuse and/or No No No neglect since last visit Have you been in the hospital since your No No No last visit? Has dressing in place as prescribed Yes Yes Yes Has compression in place as prescribed Yes Yes Yes Has offloadiing in place as prescribed N/A N/A N/A Experienced any changes in pain level or No No No management Left Footwear Regular Shoe Regular Shoe Regular Shoe Right Footwear Regular Shoe Regular Shoe Regular Shoe Pain Scale: 0-10 Numeric Is Patient Pain Free? Yes Yes Yes 08/22/24 14:08 WC - Today's Visit Information Type of service Follow-up Visit (Physician/CHEMICAL MACHINE TENDER ) Arrival Mode Ambulatory Transfer Assistance Accompanied by sister Patient Identification Verified (Name & Yes ) Patient Requires Transmission-Based Precautions Height and Weight Body Mass Index (BMI) 32.4 BMI Classification Obese Vital Signs Temperature (97.8 F-99.1 F) 97.2 F L Temperature Source Temporal Pulse Rate (60-100) 66 Pulse Location Monitor Respiratory Rate (12-18) 18 Respiratory rate source Observation Oxygen Delivery Method Room Air Blood Pressure (90/60-120/80) 169/81 H Blood Pressure Mean (mm Hg) 110 Source Monitor Position Sitting Blood Pressure Location Left Arm Comment History Since Last Visit- (Skip if this is Patient's initial visit) Have you changed medications since your No last visit? Any new allergies or adverse reactions No Had a fall/change in ADL's that may No increase risk of falls Signs or symptoms of abuse and/or No neglect since last visit Have you been in the hospital since your No last visit? Has dressing in place as prescribed Yes Has compression in place as prescribed No Has offloadiing in place as prescribed N/A Experienced any changes in pain level or No management Left Footwear Regular Shoe Right Footwear Regular Shoe Pain Scale: 0-10 Numeric Is Patient Pain Free? Yes WC - Nurse 1 - General Ulcer Measurement Start: 08/01/24 14:07 Freq: Status: Active Protocol: Activity Type Activity Date Activity User E-sign Co-sign Detail Recorded Client Recorded Date Recorded By Document 08/01/24 14:07 BM [id number] 08/01/24 14:16 BM Document 08/08/24 15:48 BM [id number] 08/08/24 16:02 BM Document 08/15/24 13:37 BM [id number] 08/15/24 13:47 BM Document 08/22/24 14:08 KW [id number] 08/22/24 14:10 KW 08/01/24 08/08/24 08/15/24 14:07 15:48 13:37 Wound Center Nurse 1 #1 LT CARDONA -Combined with other wound No No No -Current Size (cm) - Length 0.3 0.7 0.6 -Current Size (cm) - Width 0.3 0.3 0.2 -Current Size (cm) - Depth 0.4 0.6 0.3 -Total Square Cm 0.09 0.21 0.12 -Date of Last Picture (Recall this 08/01/24 08/08/24 08/15/24 field) -Photo Taken Yes Yes Yes -Epithelialization Small 1-33% Small 1-33% Small 1-33% -Tunneling No No No -Undermining/Tunneling No No No -Circular Undermining No No No -Exudate Amt Medium Medium Medium -Exudate Type Serosanguineous Sanguineous Serosanguineous -Wound Margin Distinct, Distinct, Distinct, Outline Outline Outline Attached Attached Attached -Granulation Amt Large (67-100%) Large (67-100%) Large (67-100%) -Granulation Quality Red Red Red -Slough/Fibrin No No Yes -Necrosis Amt None Present (0 None Present (0 Small (1-33%) %) %) -Necrotic Tissue Type Adherent Slough -Texture (Mahi-wound Skin Appearance) Assessed Assessed Assessed, Scarring -Moisture (Mahi-wound Skin Appearance) Assessed,Dry/ Assessed Assessed,Dry/ Scaly Scaly -Color (Mahi-wound Skin Appearance) Assessed Assessed Assessed -Temperature (Mahi-wound Skin No Abnormality No Abnormality No Abnormality Appearance) (Pt Warm) (Pt Warm) (Pt Warm) -Tenderness on Palpation (Mahi-wound No No No Skin Appearance) -Ulcer Cleansing Rinsed/ Rinsed/ Rinsed/ Irrigated with Irrigated with Irrigated with Saline Saline Saline -Foul Odor after Cleansing No No No -Anesthetic Used 5% Lidocaine 5% Lidocaine 5% Lidocaine Gel Gel Gel Lower Limb Edema Present Yes Yes Left Calf (cm) 39 38.4 39.1 Left Ankle (cm) 20.5 20.4 20.7 08/22/24 14:08 Wound Center Nurse 1 #1 LT CARDONA -Combined with other wound -Current Size (cm) - Length 0.1 -Current Size (cm) - Width 0.1 -Current Size (cm) - Depth 0 -Total Square Cm 0.01 -Date of Last Picture (Recall this 08/22/24 field) -Photo Taken -Epithelialization Large 67-100% -Tunneling -Undermining/Tunneling -Circular Undermining -Exudate Amt None Present -Exudate Type -Wound Margin -Granulation Amt Small (1-33%) -Granulation Quality Red -Slough/Fibrin -Necrosis Amt -Necrotic Tissue Type -Texture (Mahi-wound Skin Appearance) Assessed -Moisture (Mahi-wound Skin Appearance) Assessed -Color (Mahi-wound Skin Appearance) Assessed -Temperature (Mahi-wound Skin No Abnormality Appearance) (Pt Warm) -Tenderness on Palpation (Mahi-wound No Skin Appearance) -Ulcer Cleansing Rinsed/ Irrigated with Saline -Foul Odor after Cleansing No -Anesthetic Used 5% Lidocaine Gel Lower Limb Edema Present Left Calf (cm) Left Ankle (cm) WC - Nurse 2 - General Ulcer CM Notes Start: 08/01/24 14:07 Freq: Status: Active Protocol: Activity Type Activity Date Activity User E-sign Co-sign Detail Recorded Client Recorded Date Recorded By Document 08/01/24 15:05 JORDAN [id number] 08/01/24 15:21 Document 08/08/24 16:26 JF [id number] 08/08/24 16:28 Document 08/15/24 13:57 JORDAN [id number] 08/15/24 14:02 Document 08/22/24 14:14 [id number] 08/22/24 14:14 08/01/24 08/08/24 08/15/24 15:05 16:26 13:57 Wound Center Nurse 2 #1 CARDONA -Time 15:17 16:27 14:00 -Correct Patient Yes Yes Yes -Correct Side, Site, Position Yes Yes Yes -Correct Procedure Yes Yes Yes -Procedure Performed Yes Yes Yes -Type of Procedure Debridement Debridement Debridement -Clinical Debridement Subcutaneous Muscle / Fascia Subcutaneous -Tissue Removed Subcutaneous Fascia Subcutaneous -Post Debridement (cm) - Length 1 0.7 0.7 -Post Debridement (cm) - Width 2 0.5 0.3 -Post Debridement (cm) - Depth 1 0.7 0.3 -Total Square (Post) (cm) 2 0.35 0.21 -Area of Debridement (cm) - Length 1 0.7 0.7 -Area of Debridement (cm) - Width 2 0.5 0.3 -Total Square (Area) (cm) 2 0.35 0.21 -Tunneling No No No -Undermining/Tunneling No No No -Circular Undermining No No No -Wound/Ulcer Outcome Not Healed Not Healed Not Healed -Ulcer Cleansing Rinsed/ Rinsed/ Rinsed/ Irrigated with Irrigated with Irrigated with Saline Saline Saline -Foul Odor after Cleansing No No No -Bioengineered Tissue No No No -Bleeding Controlled with Pressure Pressure Pressure -Treatment Response Procedure Procedure Procedure Tolerated Well Tolerated Well Tolerated Well -Offloading No No No -Debridement - Subq, 1st 20sq cm Yes Yes -Debridement - Muscle / Fascia, 1st Yes 20sq cm Pain Scale: 0-10 Numeric Is Patient Pain Free? Yes Yes Yes 08/22/24 14:14 Wound Center Nurse 2 #1 CARDONA -Time -Correct Patient No -Correct Side, Site, Position No -Correct Procedure No -Procedure Performed No -Type of Procedure -Clinical Debridement -Tissue Removed -Post Debridement (cm) - Length 0.1 -Post Debridement (cm) - Width 0.1 -Post Debridement (cm) - Depth 0.1 -Total Square (Post) (cm) 0.01 -Area of Debridement (cm) - Length 0.1 -Area of Debridement (cm) - Width 0.1 -Total Square (Area) (cm) 0.01 -Tunneling -Undermining/Tunneling -Circular Undermining -Wound/Ulcer Outcome Not Healed -Ulcer Cleansing -Foul Odor after Cleansing -Bioengineered Tissue -Bleeding Controlled with -Treatment Response -Offloading -Debridement - Subq, 1st 20sq cm No -Debridement - Muscle / Fascia, 1st 20sq cm Pain Scale: 0-10 Numeric Is Patient Pain Free? Yes - Nurse 3 - General Ulcer D/C NN Start: 08/01/24 14:07 Freq: Status: Active Protocol: Activity Type Activity Date Activity User E-sign Co-sign Detail Recorded Client Recorded Date Recorded By Document 08/01/24 15:24 JF [id number] 08/01/24 15:24 JF Document 08/15/24 14:14 BMF [id number] 08/15/24 14:15 BMF Edit Result 08/15/24 14:14 BMF (1) [id number] 08/16/24 10:29 DS Document 08/22/24 14:16 JF [id number] 08/22/24 14:17 JF (1) #1 LT CARDONA - Hydrogel => 1 08/01/24 08/15/24 08/22/24 15:24 14:14 14:16 Wound Care Center Nurse 3 #1 LT CARDONA -Ulcer Cleansing Rinsed/ Rinsed/ Irrigated with Irrigated with Saline Saline -Foul Odor after Cleansing No No -Primary Dressing Applied Silicone Border C Hydrogel Foam 4x4 -Primary Dressing Covered/Secured with Dry Gauze & Roll Gauze, Secured with Tape -Hydrogel 1 -Silicone Border Foam 4x4 1 Left -Tubular Bandage Single Layer -Size of Tubigrip Used Size E -Size E ($) 1 Treatment Response Procedure Tolerated Well Pain Scale: 0-10 Numeric Is Patient Pain Free? Yes Yes Yes - Visit Discharge Discharge Condition Stable Stable Stable Ambulatory Status Ambulatory Ambulatory Ambulatory Transportation Private Auto Private Auto Private Auto Accompanied by sister twin sister Medication Reconcilliation completed & Yes Yes provided to patient/care provider Clinical Summary of Care Provided Yes Yes #1 LT CARDONA -Ulcer Cleansing Rinsed/ Irrigated with Saline -Foul Odor after Cleansing No -Other Dressing hydrogel/gauze Assessment/Plan Assessment/Plan (1) Non-healing wound of left lower extremity: CODE(S): S81.802A - Unspecified open wound, left lower leg, initial encounter (2) Cat bite of left lower leg: CODE(S): S81.852A - Open bite, left lower leg, initial encounter; W55.01XA - Bitten by cat, initial encounter QUALIFIERS: Encounter type: initial encounter Qualified Code(s): S81.852A - Open bite, left lower leg, initial encounter; W55.01XA - Bitten by cat, initial encounter PLAN: Plan Plan from 01 August 2024 X-ray obtained today of the left tibia and fibula and per my read no signs of bony involvement or osteomyelitis There is no foreign body Wound was cultured today and we will follow-up the wound cultures (cultured after excision so this is a deep soft tissue culture) Plan for daily silver alginate changes . Discussed and showed the patient and her sister the dressing change. Follow-up in 1 week. Plan from 08 August 2024: Cultures demonstrated Staphylococcus susceptible to doxycycline. She is placed on doxycycline and Thursday, 05 August 2024. She has been tolerating the antibiotic. She will finish a short course for it and we will continue to examine the wound clinically for signs of infection. Plan for Aquacel Ag twice daily. Patient's blood pressure was 220/110 when I took it, and the nursing staff was also getting severely elevated blood pressures. We sent the patient emergently to the emergency department for evaluation of her blood pressure and she agreed to go. Follow-up in the wound care center in 1 week Plan from 15 August 2024: Wound appears to be healing in nicely. Plan to alternate collagen hydrogel and Aquacel Ag. Appears to be healing from the inside out and granulating well. No exposed critical structures at the base (just healthy granulation tissue). Follow-up in 1 week If she continues to have chronic nonhealing wound in the lower extremity, I will order ABIs at the next visit as she may have a vascular insufficiency problem, Although this wound is small and will likely heal regardless. Plan from 22 August 2024: Making significant progress. Continue wound care plan. Follow-up in 2 weeks and as I am anticipating it will be healed
--- NOTE | 2024-08-23 10:38 | WC ---
PHOTO 08/22/24 LEFT CARDONA
== END 2024-08-26 23:59 | disposition home or self-care (01) ==
LOC: WC 14:30
PROVIDERS: PCP Family Medicine; Visit Provider Nurse Practitioner Family
DX: S81.852D Open bite, left lower leg, subsequent encounter (principal); I10 Essential (primary) hypertension; W55.01XD Bitten by cat, subsequent encounter; B95.7 Other staphylococcus as the cause of diseases classified elsewhere
CPT/HCPCS: 11042; 11043; 99213; G0463

== ENCOUNTER 2024-09-05 09:57 | Outpatient (RCR) | payer MEDICARE, SELFPAY ==
[2024-08-27 02:21] VITALS: BP 169/81; PULSE 66; RESP 18; TEMP 36.2; BMI 32.4
[2024-09-05 10:06] VITALS: BP 140/75; PULSE 64; RESP 18; TEMP 35.9; BMI 32.4
--- NOTE | 2024-09-05 10:48 | PCM.WC.PN ---
History of Present Illness Date of Service: 09/05/24 Chief Complaint: Left anterior leg cat bite History of Wound: 84 year old female presents today for further evaluation of a cat bite to her left anterior leg that occurred on 06/17/24 by her own cat. She went to a urgent care in [place] who placed her on Doxycycline (she is PCN allergic). She went back to the urgent care a few days later because her symptoms (erythema, pain, swelling, and the bite was looking worse) were not improving. At that time, a wound culture was obtained and she was kept on the Doxycycline. She has been placing Bactroban ointment to the wound. She states that the erythema has started to resolve over the past several days. The wound culture results from the urgent care were faxed to us and they showed Abundant Pasteurella multocida (+4), Rare Mixed Skin Microorganisms (+1), Abundant Mixed Anaerobic Bacteria (+4). She is denying fever, chills, nausea, vomiting. She comes in today for further evaluation and treatment. Subjective Subjective Doing well Feels like she's healed. Objective Data Objective Data Vital Signs: Vital Signs Temp Pulse Resp BP O2 Del Method 96.7 F L 64 18 140/75 H Room Air 09/05/24 10:06 09/05/24 10:06 09/05/24 10:06 09/05/24 10:06 09/05/24 10:06 Oxygen Delivery Method Room Air Weight: 195 lb Body Mass Index (BMI) 32.4 Charges/Coding Visit Charges Office Visits / Consults: 49681 OV L2 Est 10min Physical Exam Narrative Left lower extremity with healed wound, skin is re-epithelialized. 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 ) Arrival Mode Ambulatory Accompanied by sister Patient Identification Verified (Name & Yes ) Height and Weight Body Mass Index (BMI) 32.4 BMI Classification Obese Vital Signs Temperature (97.8 F-99.1 F) 96.7 F L Temperature Source Temporal Pulse Rate (60-100) 64 Pulse Location Monitor Respiratory Rate (12-18) 18 Respiratory rate source Observation Oxygen Delivery Method Room Air Blood Pressure (90/60-120/80) 140/75 H Blood Pressure Mean (mm Hg) 96 Source Monitor Position Semi-Fowlers Blood Pressure Location Left Arm History Since Last Visit- (Skip if this is Patient's initial visit) Have you changed medications since your No last visit? Any new allergies or adverse reactions No Had a fall/change in ADL's that may No increase risk of falls Signs or symptoms of abuse and/or No neglect since last visit Have you been in the hospital since your No last visit? Has dressing in place as prescribed Yes Has compression in place as prescribed Yes Has offloadiing in place as prescribed N/A Experienced any changes in pain level or No management Left Footwear Regular Shoe Right Footwear Regular Shoe Pain Scale: 0-10 Numeric Is Patient Pain Free? Yes - Nurse 1 - General Ulcer Measurement Start: 09/05/24 10:05 Freq: Status: Active Protocol: Activity Type Activity Date Activity User E-sign Co-sign Detail Recorded Client Recorded Date Recorded By Document 09/05/24 10:06 ARLET [id number] 09/05/24 10:11 ARLET 09/05/24 10:06 Wound Center Nurse 1 #1 LT CARDONA -Current Size (cm) - Length 0.1 -Current Size (cm) - Width 0.1 -Current Size (cm) - Depth 0 -Total Square Cm 0.01 -Date of Last Picture (Recall this 09/05/24 field) -Texture (Mahi-wound Skin Appearance) Assessed -Moisture (Mahi-wound Skin Appearance) Assessed -Color (Mahi-wound Skin Appearance) Assessed -Temperature (Mahi-wound Skin No Abnormality Appearance) (Pt Warm) -Tenderness on Palpation (Mahi-wound No Skin Appearance) -Ulcer Cleansing Rinsed/ Irrigated with Saline -Foul Odor after Cleansing No -Wound Comment(s) healed IONA - Nurse 2 - General Ulcer CM Notes Start: 09/05/24 10:05 Freq: Status: Active Protocol: Activity Type Activity Date Activity User E-sign Co-sign Detail Recorded Client Recorded Date Recorded By Document 09/05/24 10:13 [facility] [id number] 09/05/24 10:16 [facility] 09/05/24 10:13 Wound Center Nurse 2 -Time 10:13 -Procedure Performed No -Post Debridement (cm) - Length 0 -Post Debridement (cm) - Width 0 -Post Debridement (cm) - Depth 0 -Total Square (Post) (cm) 0 -Area of Debridement (cm) - Length 0 -Area of Debridement (cm) - Width 0 -Total Square (Area) (cm) 0 -Wound/Ulcer Outcome Healed- Epithelialized -Bleeding Controlled with NA Pain Scale: 0-10 Numeric Is Patient Pain Free? Yes Assessment/Plan Assessment/Plan (1) Non-healing wound of left lower extremity: CODE(S): S81.802A - Unspecified open wound, left lower leg, initial encounter (2) Cat bite of left lower leg: CODE(S): S81.852A - Open bite, left lower leg, initial encounter; W55.01XA - Bitten by cat, initial encounter QUALIFIERS: Encounter type: initial encounter Qualified Code(s): S81.852A - Open bite, left lower leg, initial encounter; W55.01XA - Bitten by cat, initial encounter PLAN: Plan Plan from 01 August 2024 X-ray obtained today of the left tibia and fibula and per my read no signs of bony involvement or osteomyelitis There is no foreign body Wound was cultured today and we will follow-up the wound cultures (cultured after excision so this is a deep soft tissue culture) Plan for daily silver alginate changes . Discussed and showed the patient and her sister the dressing change. Follow-up in 1 week. Plan from 08 August 2024: Cultures demonstrated Staphylococcus susceptible to doxycycline. She is placed on doxycycline and Thursday, 05 August 2024. She has been tolerating the antibiotic. She will finish a short course for it and we will continue to examine the wound clinically for signs of infection. Plan for Aquacel Ag twice daily. Patient's blood pressure was 220/110 when I took it, and the nursing staff was also getting severely elevated blood pressures. We sent the patient emergently to the emergency department for evaluation of her blood pressure and she agreed to go. Follow-up in the wound care center in 1 week Plan from 15 August 2024: Wound appears to be healing in nicely. Plan to alternate collagen hydrogel and Aquacel Ag. Appears to be healing from the inside out and granulating well. No exposed critical structures at the base (just healthy granulation tissue). Follow-up in 1 week If she continues to have chronic nonhealing wound in the lower extremity, I will order ABIs at the next visit as she may have a vascular insufficiency problem, Although this wound is small and will likely heal regardless. Plan from 22 August 2024: Making significant progress. Continue wound care plan. Follow-up in 2 weeks and as I am anticipating it will be healed Plan from 05 September 2024: Healed. Discussed scar care. Aquafor PRN for dry skin F/u as needed
--- NOTE | 2024-09-06 08:45 | WC ---
PHOTO 09/05/24 LEFT CARDONA
== END 2024-09-26 16:20 | disposition home or self-care (01) ==
LOC: WC 09:57
PROVIDERS: PCP Family Medicine; Visit Provider Surgery Plastic and Reconstructive Surgery
DX: S81.852A Open bite, left lower leg, initial encounter (principal); W55.01XA Bitten by cat, initial encounter
CPT/HCPCS: 99212; G0463